=== PATIENT | female | born 1935 | race Caucasian/White ===

== ENCOUNTER 2017-07-24 13:04 | Outpatient (CLI) | payer MEDICARE ==
--- NOTE | 2017-07-24 16:11 | RAD ---
PA AND LATERAL VIEWS OF THE CHEST: HISTORY: COPD. FINDINGS: Comparison is made with the exam of 10/18/14. The heart size is normal. The lungs are well expanded without focal areas of consolidation, pneumoth orax, or pleural effusions. Mild chronic changes are stable. There are mild degenerative changes in the spine. IMPRESSION: No radiographic evidence of acute cardiopulmonary process. POS: OFF
== END 2017-07-24 13:05 | disposition home or self-care (01) ==
LOC: RAD-FRANK 13:04
PROVIDERS: ATTEND Nurse Practitioner Family
DX: J44.9 Chronic obstructive pulmonary disease, unspecified (principal)
CPT/HCPCS: 71020

== ENCOUNTER 2017-08-06 05:24 | Inpatient (IN) | payer MEDICARE ==
[2017-08-06 06:20] LABS: #Lymphocytes 1.7 thou/uL (1.20-3.40); #Monocytes 0.4 thou/uL (0.11-0.59); #Neutrophils 7.5 thou/uL (1.40-6.50); %Basophils 0.2 % (0.0-1.0); %Eosinophils 0.1 % (0.0-10.0); %Lymphocytes 17.6 % (21.0-51.0); %Monocytes 4.4 % (0.0-10.0); %Neutrophils 77.7 % (42.0-75.0); Hemoglobin 14.1 g/dL (12.0-16.0); Mean Corpuscular HGB CONC 32.3 g/dL (32.0-36.0); Mean Corpuscular Hemoglobin 28.2 pg (27.0-31.0); Mean Corpuscular Volume 87.1 fl (81.0-99.0); Mean Platelet Volume 9.1 fL (7.4-10.4); Platelet Count 208 thou/uL (130-400); RBC Distribution Width 12.9 % (11.5-14.5); Red Blood Cell (RBC) Count 5.02 mill/uL (4.20-5.40); White Blood Cell (WBC) Count 9.6 thou/uL (4.8-10.8)
[2017-08-06] MEDS ORDERED: Albuterol Sulfate 2.5 mg/0.5 ml Neb ONE ×4 (06:39→06:40)
[2017-08-06] MEDS ORDERED: Sodium Chloride For Inhalation 0.9% 3 ML NEB ONE (06:40)
[2017-08-06 06:43] LABS: ALT (SGPT) 15 U/L (8-55); AST (SGOT) 32 U/L (5-34); Albumin 4.1 g/dL (3.4-4.8); Alkaline Phosphatase 60 U/L (40-150); Anion Gap 15 mmol/L (10-20); BUN (Urea Nitrogen) 7 mg/dL (9.8-20.1); Bilirubin, Total 0.5 mg/dL (0.2-1.2); Calc. Creatinine Clearance 0 mL/min (70-130); Calcium 9.3 mg/dL (7.8-10.44); Carbon Dioxide 25 mmol/L (23-31); Chloride 96 mmol/L (98-107); Estimated GFR-MDRD 68; Glucose 199 mg/dL (83-110); Potassium 3.7 mmol/L (3.5-5.1); Protein, Total 7.1 g/dL (6.0-8.3); Sodium 132 mmol/L (136-145)
[2017-08-06 06:46] LABS: Troponin I 0.068 ng/mL (< 0.028)
[2017-08-06 06:52] LABS: CKMB 9.5 ng/mL (0-6.6)
--- NOTE | 2017-08-06 08:28 | RAD ---
SINGLE VIEW OF THE CHEST: Comparison: 06-15-13 History: Dyspnea, fever. FINDINGS: Single view of the chest shows a normal sized cardiomediastinal silhouette with atherosclerotic calci fications in the aorta. There is no evidence of consolidation, mass, or pleural effusion. IMPRESSION: No evidence of acute cardiopulmonary disease. POS: C
[2017-08-06 08:46] LABS: Actual Bicarbonate (HCO3a) 21.7 mEq/L (22-26); Base Excess (BEa) -4.6 mEq/L (0 (+/-) 2.5); CO2 Tension 44.4 mmHg (35.0-45.0); Calcium, Ionized 1.2 mmol/L (1.12-1.30); Hematocrit-ABG 48.3 % (36.0-47.0); Hemoglobin (Hb) 13.7 g/dL (12.0-16.0); O2 Tension (PaO2) 121.3 mmHg (80.0-100.0); pH, Arterial 7.31 (7.35-7.45)
[2017-08-06 08:47] LABS: Analyzer IN Cardio ER; Puncture Site RRA
--- NOTE | 2017-08-06 08:52 | HP ---
DATE OF ADMISSION: 08/06/2017 CHIEF COMPLAINT: Shortness of breath. HISTORY OF PRESENT ILLNESS: This is an 82-year-old elderly white female with a known history of COPD with multiple exacerbations. She usually goes to [facility] where she has most of her care. The patient was brought to this hospital today. She was started on BiPAP. She came to the E [facility] and saturations in the 70s. Patient was barely able to speak out of the BiPAP. She is saying that she has not been eating for the past 5 days and she has gotten very weak and lethargic and has worse frank cough for the past 1 week. The patient had to call EMS today because of the worsening cough and lethargy. She denies having any chest pain, no nausea, no vomiting, no diarrhea, and no constipatio n. 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 The patient has a known history of type 2 diabetes mellitus and according to her, it is well controll ed. PAST MEDICAL HISTORY: 1. Hypertension. 2. Type 2 diabetes mellitus. 3. Chronic obstructive pulmonary disease on home oxygen. 4. History of coronary artery disease status post stents, many years ago and she follows a cardiolog ist at [facility]. ALLERGIES: PENICILLIN allergy. HOME MEDICATIONS: 1. Omeprazole 40 mg p.o. daily. 2. Insulin, Levemir 10 units in the evening. 3. Lisinopril 10/12.5 mg p.o. daily. SOCIAL HISTORY: The patient is a nonsmoker, smoked for almost 60 years. No history of alcohol, no h istory of illicit drug use. She lives by herself and she is very independent. FAMILY HISTORY: Mother of heart disease at the age of 86. Otherwise, not relevant for the [facility]. REVIEW OF SYSTEMS: All 12 systems are reviewed with the patient thoroughly and found to be negative at this time. The following complete review of systems was negative, unless otherwise mentioned in t he HPI or below: Constitutional: Weight loss or gain, sense of well-being, ability to conduct usual activities, exerc ise tolerance. Skin/Breast: Rash, itching, changes in hair growth or loss, nail changes, breast lumps, tenderness, swelling, nipple discharge. Eyes: Vision, double vision, tearing, blind spots, pain. ENT/Mouth: Headaches (location, time of onset, duration, precipitating factors), vertigo, lightheade dness, injury. Vision, double vision, tearing, blind spots, pain, nose bleeding, colds, obstruction, discharge, dental difficulties, gingival bleeding, dentures, neck stiffness, pain, tenderness, masses in thyroid or other areas Cardiovascular: Precordial pain, substernal distress, palpitations, syncope, dyspnea on exertion, or thopnea, nocturnal paroxysmal dyspnea, edema, cyanosis, hypertension, heart murmurs, varicosities, ph lebitis, claudication. Respiratory: Pain, shortness of breath, wheezing, stridor, cough, hemoptysis, fever or night sweats Gastrointestinal: Poor appetite, dysphagia, indigestion, abdominal pain, heartburn, eructation, naus ea, vomiting, hematemesis, jaundice, constipation, or diarrhea, abnormal stools (walter-colored, tarry, bloody, greasy, foul smelling), flatulence, hemorrhoids, recent changes in bowel habits. Genitourinary: Urgency, frequency, dysuria, nocturia, hematuria, polyuria, oliguria, unusual (or fransisco nge in) color of urine, stones, hesitancy, change in size of stream, dribbling, acute retention or in continence, libido, potency. Musculoskeletal: Pain, swelling, redness or heat of muscles or joints, limitation, of motion, muscul ar weakness, atrophy, cramps. Neurologic/Psychiatric: Convulsions, paralyses, tremor, incoordination, paraesthesias, difficulties with memory of speech, sensory or motor disturbances, or muscular coordination (ataxia, tremor), emot ional problems, anxiety, depression, previous psychiatric care, unusual perceptions, hallucinations. Allergy/Immunologic: Skin rash, anemia, bleeding tendency, polydipsia, polyuria, intolerance to heat or cold. PHYSICAL EXAMINATION: VITAL SIGNS: Blood pressure is 130/88, respiratory rate is 18, saturation is 98% on 30% FiO2 on BiPA P 12/5. GENERAL: The patient is seen sitting on the bed, has severe distress as her BiPAP is being leaking a nd she is very uncomfortable at this time. HEENT: Atraumatic and normocephalic. PERRLA. Extraocular movements are intact. Oral mucosa is pin k and moist. CARDIOVASCULAR: S1 and S2 normal. No murmurs, rubs or gallops. LUNGS: Bilateral air entry was reduced with increased wheezing and crackles noted in the lower bases and with absolute severe bronchoconstriction were noted. ABDOMEN: Soft, nontender. No guarding or rebound tenderness. Bowel sounds normal. MUSCULOSKELETAL: No calf tenderness. No pedal edema. EXTREMITIES: No joint tenderness. No joint swelling. SKIN: No cyanosis, no erythema, no rash, no pallor. NEUROLOGIC: Cranial nerve examination II-XII intact. No focal deficits were identified at this time . MULTIPLE SLIDE OPERATOR: On examination, II-XII are intact. No focal deficits were noted. LYMPHATICS: No evidence of any lymph node enlargement was noted. PSYCHIATRIC: No signs of suicidal ideation. No signs of saad. No signs of agitation. NECK: No JVD was noted. No thyromegaly. LABORATORY DATA: WBC 9.6, hemoglobin 14.1, hematocrit 43.8, platelets is 208. Sodium 132, potassium 3.7, chloride is 96, BUN 7, creatinine 0.81, blood sugar 99, troponin 0.068, BNP 226. IMAGING DATA: Chest x-ray was done showing no evidence of any pneumonia at this time. ASSESSMENT: 1. Acute chronic obstructive pulmonary disease exacerbation. 2. Acute hypoxic respiratory failure. 3. Non-ST elevation myocardial infarction. 4. Hypertension. 5. History of hyperlipidemia. 6. History of gastroesophageal reflux disease. 7. History of coronary artery disease. PLAN: 1. Plan is to admit this patient for at least 2 midnights. Patient has severe respiratory compromis e at this time. She is on bilevel positive airway pressure currently and has severe bronchoconstrict ion. We will continue the patient on Solu-Medrol 40 mg q.6 hours and continue the bilevel positive a irway pressure as needed. Plan to keep the saturations more than 92% and we will titrate FiO2 to chan t. At this time, we will get an ABG to look for any evidence of CO2 retention and also consult Pulmo nary and Critical Care. 2. The patient has evidence of productive cough. We will start the patient on azithromycin 500 mg I V daily. 3. We will check for flu influenza. 4. Patient has elevated troponins and the patient expressed no interventions at this time, so we hay l closely follow and we will start the patient on Lovenox at 1 mg/kg and we will continue the patient on aspirin, beta ed, and statin. 5. We will order 2D echo and we will consult Cardiology if needed if any worsening troponins. 6. Patient has type 2 diabetes mellitus. We will continue the patient on home dose of Levemir 10 un its and will do a.c. and at bedtime sliding scale insulin. Closely monitor the blood sugars to keep them between 140-180. 7. Hypertension is well controlled. We will restart the patient's home medications. We will closel y monitor. 8. Deep venous thrombosis prophylaxis, on Lovenox. I spent 70 minutes on this patient. On this, one hour is a critical care time.
[2017-08-06 09:30] LABS: Troponin I 0.132 ng/mL (< 0.028)
[2017-08-06] MEDS ORDERED: Albuterol Sulfate 2.5 mg/3 ml Neb NEB PRN (10:34)
[2017-08-06] MEDS ORDERED: Dextrose 50% Abboject 50 ML SYRINGE SLOW IVP PRN (10:34)
[2017-08-06] MEDS ORDERED: Bisacodyl 5 MG TAB PO PRN (10:34)
[2017-08-06] MEDS ORDERED: Enoxaparin Sodium 40 MG/0.4 ML SYRINGE SC SCH ×3 (10:34→18:00)
[2017-08-06] MEDS ORDERED: Ondansetron ODT 4 MG TAB PO PRN (10:34)
[2017-08-06] MEDS ORDERED: HYDROcodone/Acetaminophen 5/325 mg Tablet PO PRN (10:34)
[2017-08-06] MEDS ORDERED: Guaifenesin DM 100-10/5 ML UDCUP PO PRN (10:34)
[2017-08-06] MEDS ORDERED: Famotidine/PF 20 mg/2ml Vial SLOW IVP SCH ×2 (10:34→12:00)
[2017-08-06] MEDS ORDERED: Insulin Regular 300 UNITS/3 ML VIAL SC PRN (10:34)
[2017-08-06] MEDS ORDERED: Dextrose 5% in Water 1,000 ML IV PRN (10:34)
[2017-08-06 11:53] LABS: pH, Arterial 7.32 (7.35-7.45)
[2017-08-06 11:54] LABS: Actual Bicarbonate (HCO3a) 21.3 mEq/L (22-26); Base Excess (BEa) -4.6 mEq/L (0 (+/-) 2.5); CO2 Tension 42.6 mmHg (35.0-45.0); O2 Tension (PaO2) 75.3 mmHg (80.0-100.0)
[2017-08-06 11:55] LABS: Analyzer IN Cardio ER; Calcium, Ionized 1.2 mmol/L (1.12-1.30); Puncture Site LRA
[2017-08-06 13:20] LABS: Troponin I 0.102 ng/mL (< 0.028)
[2017-08-06 17:27] VITALS: BMI 30.4
[2017-08-06] MEDS: Carvedilol 3.125 MG TAB PO SCH (18:13)
[2017-08-06] MEDS: Azithromycin 500 MG in Sodium Chloride 0.9% 250 ML 250 ML IVPB SCH (18:29)
[2017-08-06] MEDS: Insulin Detemir 100 UNITS/ML 10 UNITS in Pre-Filled Syringe 1 EACH SC SCH (18:30)
[2017-08-06] MEDS: Lisinopril/Hydrochlorothiazide 10 mg/12.5 mg Tablet PO SCH (18:35)
[2017-08-06] MEDS: Atorvastatin Calcium 40 MG TAB PO SCH (20:10)
[2017-08-06] MEDS: Famotidine/PF 20 mg/2ml Vial SLOW IVP SCH (20:10)
[2017-08-06] MEDS ORDERED: INSULIN DETEMIR 10 UNIT SQ SCH (21:00)
[2017-08-07 05:38] LABS: Anion Gap 13 mmol/L (10-20); BUN (Urea Nitrogen) 17 mg/dL (9.8-20.1); Calc. Creatinine Clearance 63 mL/min (70-130); Calcium 9.7 mg/dL (7.8-10.44); Carbon Dioxide 26 mmol/L (23-31); Chloride 98 mmol/L (98-107); Estimated GFR-MDRD 61; Glucose 181 mg/dL (83-110); Potassium 4.3 mmol/L (3.5-5.1); Sodium 133 mmol/L (136-145)
[2017-08-07 05:53] LABS: Band 10 % (5-11); Hemoglobin 13.4 g/dL (12.0-16.0); Lymphocytes 13 % (21-51); MDiff Complete? YES; Mean Corpuscular HGB CONC 32.7 g/dL (32.0-36.0); Mean Corpuscular Hemoglobin 28.3 pg (27.0-31.0); Mean Corpuscular Volume 86.4 fl (81.0-99.0); Monocytes 3 % (0-10); Neutrophil 69 % (42-75); PLT Morphology Comment Appears Decreased; Platelet Count 214 thou/uL (130-400); RBC Distribution Width 12.9 % (11.5-14.5); Reactive Lymphocytes 5 % (0-10); Red Blood Cell (RBC) Count 4.74 mill/uL (4.20-5.40); White Blood Cell (WBC) Count 22.8 thou/uL (4.8-10.8)
[2017-08-07] MEDS ORDERED: Prevnar 13-Val Conj/PF 0.5 ML SYRINGE IM ONE (09:00)
[2017-08-07] MEDS: Enoxaparin Sodium 40 MG/0.4 ML SYRINGE SC SCH (09:26)
[2017-08-07] MEDS: Famotidine/PF 20 mg/2ml Vial SLOW IVP SCH ×2 (09:26→20:33)
[2017-08-07] MEDS: Insulin Detemir 100 UNITS/ML 10 UNITS in Pre-Filled Syringe 1 EACH SC SCH (09:30)
[2017-08-07] MEDS: Carvedilol 3.125 MG TAB PO SCH ×3 (09:30→18:17)
[2017-08-07] MEDS: Azithromycin 500 MG in Sodium Chloride 0.9% 250 ML 250 ML IVPB SCH (12:22)
[2017-08-07] MEDS: Lisinopril/Hydrochlorothiazide 10 mg/12.5 mg Tablet PO SCH (12:28)
--- NOTE | 2017-08-07 14:58 | PDOC.PN ---
- Subjective Encounter Start Date: 08/07/17 Encounter Start Time: 08:00 Patient is sen today, alert an doriented. She is Sleeping in Bed comfortably, but was having severe wheezing. Denies any chest pain, has persistant SOB. - Objective Resuscitation Status: Resuscitation Status DNR:Do Not Resuscitate MAR Reviewed: Yes Vital Signs & Weight: Vital Signs (12 hours) Temp Pulse Pulse Pulse Resp BP Pulse Ox 08/07/17 12:28 81 08/07/17 11:28 98.4 F 81 22 H 98/62 99 08/07/17 09:07 85 84 08/07/17 08:06 92 22 H 92 L 08/07/17 08:00 98.0 F 92 22 H 118/59 L 92 L 08/07/17 05:16 97.9 F 93 24 H 93/53 L 95 Pulse Ox Pulse Ox Pulse Ox 08/07/17 12:28 08/07/17 11:28 08/07/17 09:07 96 84 L 98 08/07/17 08:06 08/07/17 08:00 08/07/17 05:16 Weight Weight 183 lb 3 oz I&O: 08/06/17 08/07/17 08/08/17 06:59 06:59 06:59 Intake Total 400 240 Balance 400 240 Result Diagrams: 08/07/17 04:54 08/07/17 04:54 Additional Labs: Accuchecks 08/07/17 08/07/17 08/06/17 10:47 05:13 20:10 POC Glucose 166 H 198 H 143 H 08/06/17 17:34 POC Glucose 206 H Radiology Reviewed by me: Yes Phys Exam - Physical Examination Constitutional: NAD HEENT: PERRLA, moist MMs Neck: no nodes, no JVD Respiratory: wheezing present (Reduced Air Entry) Cardiovascular: RRR, no significant murmur Gastrointestinal: soft, non-tender Musculoskeletal: no edema, pulses present Neurological: non-focal, normal sensation Lymphatic: no nodes Dx/Plan (1) Acute bronchitis with chronic obstructive pulmonary disease (COPD) Code(s): J44.0 - CHRONIC OBSTRUCTIVE PULMON DISEASE W ACUTE LOWER RESP INFCT; J20.9 - ACUTE BRONCHITIS, UNSPECIFIED Status: Acute (2) Acute and chronic respiratory failure with hypoxia Code(s): J96.21 - ACUTE AND CHRONIC RESPIRATORY FAILURE WITH HYPOXIA Status: Acute (3) Hypertension Code(s): I10 - ESSENTIAL (PRIMARY) HYPERTENSION Status: Acute (4) DM type 2 (diabetes mellitus, type 2) Status: Acute Qualifiers: Diabetes mellitus complication status: without complication (5) CAD (coronary artery disease) Code(s): I25.10 - ATHSCL HEART DISEASE OF [place] CORONARY ARTERY W/O ANG PCTRS Status: Chronic - Plan cont current plan of care, continue antibiotics, PT/OT, respiratory therapy, incentive spirometry, DVT proph w/lovenox * . Plan: Will continue with Solumedrol 40mg q hrs, Will use BIPAP if worsening oxygen requirements, continue with Duo nebs and Albyuteral and IV azithromycin. Consulted Pulmonary waiting for recommedations. Will add Acapella for increased mucosal clearance and better breathing. Patient has h/o CAD, continue patient on Asprin/ BB/ Statin, Deneis any chest pain. Patient has h/o DM type 2 will continue with SSI, keep BG 140-180. DVT prophylaxis: Lovenox. Code status DNR - Discharge Day Encounter end time: 08:30 Review of Systems - Review of Systems Constitutional: weakness Eyes: negative: Vision Change, Conjunctivae Inflammation, Eyelid Inflammation, Redness, Other ENT: negative: Ear Pain, Ear Discharge, Nose Pain, Nose Discharge, Nose Congestion, Mouth Pain, Mouth Swelling, Throat Pain, Throat Swelling, Other Respiratory: Cough, Shortness of Breath, SOB with Excertion, Wheezing Cardiovascular: orthopnea. negative: chest pain, palpitations, paroxysmal nocturnal dyspnea, edema, light headedness, other Genitourinary: negative: Dysuria, Frequency, Incontinence, Hematuria, Retention , Other Musculoskeletal: negative: Neck Pain, Shoulder Pain, Arm Pain, Back Pain, Hand Pain, Leg Pain, Foot Pain, Other Skin: negative: Rash, Lesions, Magno, Bruising, Other Neurological: negative: Weakness, Numbness, Incoordination, Change in Speech, Confusion, Seizures, Other - Medications/Allergies Allergies/Adverse Reactions: Allergies Allergy/AdvReac Type Severity Reaction Status Date / Time Penicillins Allergy Severe Rash Verified 06/16/13 00:55 Medications: Current Medications Hydrocodone Bitart/Acetaminophen ([place] 5/325) 1 tab PO Q4H PRN PRN Reason: Moderate Pain (4-6) Albuterol Sulfate (Ventolin) 2.5 mg NEB Q2H PRN PRN Reason: SOB &/or Wheezing Albuterol/Ipratropium (Duoneb) 3 ml NEB [id number] [facility] Last Admin: 08/07/17 11:33 Dose: 3 ml Aspirin (Aspirin Chewable) 81 mg PO DAILY [facility] Last Admin: 08/07/17 09:27 Dose: 81 mg Atorvastatin Calcium (Lipitor) 40 mg PO HS [facility] Last Admin: 08/06/17 20:10 Dose: 40 mg Bisacodyl (Dulcolax) 10 mg PO DAILYPRN PRN PRN Reason: Constipation Carvedilol (Coreg) 3.125 mg PO BID-WM [facility] Last Admin: 08/07/17 09:30 Dose: 3.125 mg Dextrose/Water (Dextrose 50%) 25 gm SLOW IVP PRN PRN PRN Reason: Hypoglycemia Enoxaparin Sodium (Lovenox) 40 mg SC 0900 [facility] Last Admin: 08/07/17 09:26 Dose: 40 mg Famotidine (Pepcid) 20 mg SLOW IVP Q12HR [facility] Last Admin: 08/07/17 09:26 Dose: 20 mg Glucagon (Glucagon) 1 mg IM PRN PRN PRN Reason: Hypoglycemia Guaifenesin/Dextromethorphan (Robitussin Dm) 15 ml PO Q4H PRN PRN Reason: Cough Lisinopril/HCTZ (Prinizide 10-12.5) 1 tab PO DAILY [facility] Last Admin: 08/07/17 12:28 Dose: Not Given Insulin Detemir 10 units/ (Miscellaneous Medication) 0.1 mls @ 0 mls/hr SC QAM [facility] Last Admin: 08/07/17 09:30 Dose: 0.1 mls Azithromycin 500 mg/ Sodium (Chloride) 250 mls @ 250 mls/hr IVPB 1200 [facility] Last Admin: 08/07/17 12:22 Dose: 250 mls Dextrose/Water (D5w) 1,000 mls @ 0 mls/hr IV .Q0M PRN; As Directed PRN Reason: Hypoglycemia Insulin Human Regular (Humulin R) 0 units SC .MODERATE SLIDING SC PRN PRN Reason: Moderate Correctional Scale Methylprednisolone Sodium Succinate (Solu-Medrol) 40 mg IVP Q6HR [facility] Last Admin: 08/07/17 12:22 Dose: 40 mg Ondansetron HCl (Zofran Odt) 4 mg PO Q6H PRN PRN Reason: Nausea/Vomiting Pantoprazole Sodium (Protonix) 40 mg PO DAILY [facility] Last Admin: 08/07/17 09:31 Dose: 40 mg
--- NOTE | 2017-08-07 15:57 | RAD ---
CHEST ONE VIEW: History: Shortness of breath. Comparison: 08-06-17 FINDINGS: Exam is limited due to patient rotation. Increased mediastinal fat. No focal airspace consolidation or pneumothorax. There is scarring in the lung apices. IMPRESSION: No acute intrathoracic abnormality. POS: [facility]
[2017-08-07] MEDS: Atorvastatin Calcium 40 MG TAB PO SCH ×2 (20:33→20:43)
[2017-08-08 06:22] LABS: Band 10 % (5-11); Hemoglobin 13.1 g/dL (12.0-16.0); Lymphocytes 5 % (21-51); MDiff Complete? YES; Mean Corpuscular HGB CONC 31.9 g/dL (32.0-36.0); Mean Corpuscular Volume 87.9 fl (81.0-99.0); Mean Platelet Volume 8.6 fL (7.4-10.4); Monocytes 4 % (0-10); Neutrophil 81 % (42-75); Platelet Count 234 thou/uL (130-400); RBC Distribution Width 12.9 % (11.5-14.5); Red Blood Cell (RBC) Count 4.69 mill/uL (4.20-5.40); White Blood Cell (WBC) Count 22.3 thou/uL (4.8-10.8)
[2017-08-08 06:38] LABS: Anion Gap 11 mmol/L (10-20); BUN (Urea Nitrogen) 24 mg/dL (9.8-20.1); Calc. Creatinine Clearance 62 mL/min (70-130); Calcium 9.6 mg/dL (7.8-10.44); Carbon Dioxide 33 mmol/L (23-31); Chloride 97 mmol/L (98-107); Estimated GFR-MDRD 60; Glucose 128 mg/dL (83-110); Potassium 4.8 mmol/L (3.5-5.1); Sodium 136 mmol/L (136-145)
[2017-08-08] MEDS: Carvedilol 3.125 MG TAB PO SCH ×2 (09:28→17:31)
[2017-08-08] MEDS: Enoxaparin Sodium 40 MG/0.4 ML SYRINGE SC SCH (09:28)
[2017-08-08] MEDS: Lisinopril/Hydrochlorothiazide 10 mg/12.5 mg Tablet PO SCH (09:28)
[2017-08-08] MEDS: Famotidine/PF 20 mg/2ml Vial SLOW IVP SCH (09:34)
[2017-08-08] MEDS: Azithromycin 500 MG in Sodium Chloride 0.9% 250 ML 250 ML IVPB SCH (14:39)
[2017-08-08] MEDS: Insulin Detemir 100 UNITS/ML 10 UNITS in Pre-Filled Syringe 1 EACH SC SCH (14:54)
--- NOTE | 2017-08-08 15:49 | PDOC.PN ---
- Subjective Encounter Start Date: 08/08/17 Encounter Start Time: 11:00 Leonie is seen today, alert and oriented. No other Concenr snoted. She remain very wheezy but able to talk in sentences. - Objective Resuscitation Status: Resuscitation Status DNR:Do Not Resuscitate MAR Reviewed: Yes Vital Signs & Weight: Vital Signs (12 hours) Temp Pulse Resp BP BP Pulse Ox 08/08/17 09:28 76 132/78 08/08/17 08:00 98.5 F 75 20 132/78 98 08/08/17 04:00 98.3 F 76 20 127/73 93 L Weight Weight 183 lb 3 oz I&O: 08/07/17 08/08/17 08/09/17 06:59 06:59 06:59 Intake Total 400 340 Balance 400 340 Result Diagrams: 08/08/17 05:54 08/08/17 05:54 Additional Labs: Accuchecks 08/08/17 08/08/17 08/07/17 11:18 04:59 19:19 POC Glucose 112 H 116 H 141 H 08/07/17 16:00 POC Glucose 121 H Radiology Reviewed by me: Yes Phys Exam - Physical Examination HEENT: PERRLA, moist MMs Neck: no nodes, no JVD Respiratory: wheezing present Cardiovascular: RRR, no significant murmur Gastrointestinal: soft, non-tender Musculoskeletal: no edema, pulses present Neurological: normal sensation Lymphatic: no nodes Psychiatric: normal affect, A&O x 3 Dx/Plan (1) Acute bronchitis with chronic obstructive pulmonary disease (COPD) Code(s): J44.0 - CHRONIC OBSTRUCTIVE PULMON DISEASE W ACUTE LOWER RESP INFCT; J20.9 - ACUTE BRONCHITIS, UNSPECIFIED Status: Acute (2) Acute and chronic respiratory failure with hypoxia Code(s): J96.21 - ACUTE AND CHRONIC RESPIRATORY FAILURE WITH HYPOXIA Status: Acute (3) Hypertension Code(s): I10 - ESSENTIAL (PRIMARY) HYPERTENSION Status: Acute Qualifiers: Hypertension type: essential hypertension Qualified Code(s): I10 - Essential (primary) hypertension (4) DM type 2 (diabetes mellitus, type 2) Status: Acute Qualifiers: Diabetes mellitus complication status: without complication (5) CAD (coronary artery disease) Code(s): I25.10 - ATHSCL HEART DISEASE OF [place] CORONARY ARTERY W/O ANG PCTRS Status: Chronic - Plan cont current plan of care, plan discussed w/ family, continue antibiotics, social media marketing manager, incentive spirometry, out of bed/ambulate, DVT proph w/lovenox * . Plan: Will continue with Solumedrol 40mg q hrs, , continue with Duo nebs and Albyuteral and IV azithromycin. Will do Acapella q4hrs. Consulted Pulmonary follow recommedations. will repeat chest xray in Am. Patient has h/o CAD, continue patient on Asprin/ BB/ Statin, Deneis any chest pain. Patient has h/o DM type 2 will continue with SSI, keep BG 140-180. DVT prophylaxis: Lovenox. Code status DNR - Discharge Day Encounter end time: 11:30 Review of Systems - Review of Systems Constitutional: weakness, malaise Eyes: negative: Pain, Vision Change, Conjunctivae Inflammation, Eyelid Inflammation, Redness, Other ENT: negative: Ear Pain, Ear Discharge, Nose Pain, Nose Discharge, Nose Congestion, Mouth Pain, Mouth Swelling, Throat Pain, Throat Swelling, Other Respiratory: Cough, Shortness of Breath, SOB with Excertion, Wheezing Gastrointestinal: negative: Nausea, Vomiting, Abdominal Pain, Diarrhea, Constipation, Melena, Hematochezia, Other Genitourinary: negative: Dysuria, Frequency, Incontinence, Hematuria, Retention , Other Musculoskeletal: negative: Neck Pain, Shoulder Pain, Arm Pain, Back Pain, Hand Pain, Leg Pain, Foot Pain, Other Skin: negative: Rash, Lesions, Magno, Bruising, Other - Medications/Allergies Allergies/Adverse Reactions: Allergies Allergy/AdvReac Type Severity Reaction Status Date / Time Penicillins Allergy Severe Rash Verified 06/16/13 00:55 Medications: Current Medications Hydrocodone Bitart/Acetaminophen ([place] 5/325) 1 tab PO Q4H PRN PRN Reason: Moderate Pain (4-6) Albuterol Sulfate (Ventolin) 2.5 mg NEB Q2H PRN PRN Reason: SOB &/or Wheezing Albuterol/Ipratropium (Duoneb) 3 ml NEB [id number] [facility] Last Admin: 08/08/17 10:37 Dose: Not Given Aspirin (Aspirin Chewable) 81 mg PO DAILY [facility] Last Admin: 08/08/17 09:28 Dose: 81 mg Atorvastatin Calcium (Lipitor) 40 mg PO HS [facility] Last Admin: 08/07/17 20:43 Dose: Not Given Bisacodyl (Dulcolax) 10 mg PO DAILYPRN PRN PRN Reason: Constipation Carvedilol (Coreg) 3.125 mg PO BID-[facility] Last Admin: 08/08/17 09:28 Dose: 3.125 mg Dextrose/Water (Dextrose 50%) 25 gm SLOW IVP PRN PRN PRN Reason: Hypoglycemia Enoxaparin Sodium (Lovenox) 40 mg SC 0900 [facility] Last Admin: 08/08/17 09:28 Dose: 40 mg Famotidine (Pepcid) 20 mg SLOW IVP Q12HR [facility] Last Admin: 08/08/17 09:34 Dose: 20 mg Glucagon (Glucagon) 1 mg IM PRN PRN PRN Reason: Hypoglycemia Guaifenesin/Dextromethorphan (Robitussin Dm) 15 ml PO Q4H PRN PRN Reason: Cough Lisinopril/HCTZ (Prinizide 10-12.5) 1 tab PO DAILY [facility] Last Admin: 08/08/17 09:28 Dose: 1 tab Insulin Detemir 10 units/ (Miscellaneous Medication) 0.1 mls @ 0 mls/hr SC QAM [facility] Last Admin: 08/08/17 14:54 Dose: Not Given Azithromycin 500 mg/ Sodium (Chloride) 250 mls @ 250 mls/hr IVPB 1200 [facility] Last Admin: 08/08/17 14:39 Dose: 250 mls Dextrose/Water (D5w) 1,000 mls @ 0 mls/hr IV .Q0M PRN; As Directed PRN Reason: Hypoglycemia Insulin Human Regular (Humulin R) 0 units SC .MODERATE SLIDING SC PRN PRN Reason: Moderate Correctional Scale Methylprednisolone Sodium Succinate (Solu-Medrol) 40 mg IVP Q6HR [facility] Last Admin: 08/08/17 14:54 Dose: Not Given Ondansetron HCl (Zofran Odt) 4 mg PO Q6H PRN PRN Reason: Nausea/Vomiting Pantoprazole Sodium (Protonix) 40 mg PO DAILY [facility] Last Admin: 08/08/17 09:28 Dose: 40 mg
[2017-08-08] MEDS: guaiFENesin ER 600 MG TAB PO SCH (20:44)
[2017-08-08] MEDS: Atorvastatin Calcium 40 MG TAB PO SCH (20:44)
[2017-08-08] MEDS: Famotidine 40 MG/4 ML VIAL SLOW IVP SCH (20:45)
--- NOTE | 2017-08-08 21:24 | CON ---
DATE OF SERVICE: 08/08/2017 SERVICE: Pulmonary Medicine. REASON FOR CONSULTATION: Respiratory failure. HISTORY OF PRESENT ILLNESS: Patient is an 82-year-old white female. She is awake and alert. She is oriented x4 and understands the situation. She notes that she came into the emergency department be cause of shortness of breath. She was struggling to breathe and so she presented here. Otherwise, s he was in her usual state of health. She had some cough and congestion. She is bringing up a little bit of yellow sputum. She tells me that she has horrendous lung disease as well as horrendous heart disease. As such, she would like to go home and ".". She notes having a primary supply chain associate, but cannot actually tell me what her name is. The echocardiogram is not consistent with her statemen t that she had a very sick heart. We had a CT scan of the chest in 2012. At that time, there was de monstration of minimal emphysematous changes. No pulmonary function studies are in our record. Sinc e being here, she had been fairly cantankerous. 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 She is cursing and is not interested in engaging in any conversation or an swering many questions. Most of this comes from chart review. PAST MEDICAL HISTORY: 1. Type 2 diabetes mellitus. 2. Hypertension. 3. Coronary artery disease, status post PCI. 4. COPD. 5. Chronic hypoxic respiratory failure, on home oxygen. PAST SURGICAL HISTORY: Unknown. ALLERGIES: PENICILLIN. MEDICATIONS: List of her inpatient medications was reviewed. No updates were made at this time. SOCIAL HISTORY: She has a [id number] history of smoking, but is currently not using anything. She denies any alcohol or illicit drug use. She currently lives by herself in previously [facility]. FAMILY HISTORY: Noncontributory. REVIEW OF SYSTEMS: Patient is refusing to participate in review of systems. PHYSICAL EXAMINATION: VITAL SIGNS: Afebrile, pulse 75, blood pressure 132/78, respirations 20, saturation 98% on 4 liters nasal cannula. GENERAL: The patient is awake and alert, in no apparent distress. HEENT: Normocephalic, atraumatic. Sclerae are white, conjunctivae pink. Oral mucosa is moist witho ut lesions. LUNGS: Decreased air entry. There is a prolonged expiratory phase, but I do not appreciating any wh eezing. Crackles are present. No rhonchi. HEART: Normal rate, regular. ABDOMEN: Soft, nontender, nondistended. Bowel sounds are positive. MUSCULOSKELETAL: No cyanosis or clubbing. There is no pitting in the bilateral lower extremities. NEUROLOGIC: Grossly nonfocal. LABORATORY DATA: WBC 22.3 and stable. Hemoglobin 13.1, platelets 234,000. Band count is 10% and ne utrophil count is up trending. A pH 7.32, pCO2 42, and pO2 75. She was on 3 liters nasal cannula at this time. Basic metabolic profile is essentially unremarkable. Creatinine 0.90, bicarbonate 33. Blood cultures x2 were unremarkable. IMAGIN. Chest x-ray demonstrates no acute intrathoracic process. Lung fortune are clear bilaterally witho ut focal consolidation. There is little prominence of pulmonary vasculature. Soft tissue attenuatio n is evident. Lung volumes are not hyperinflated. 2. Echocardiogram demonstrates normal ejection fraction with 1-3 diastolic dysfunction. No regional wall motion abnormalities. Normal left ventricular wall thickness is present. ASSESSMENT: 1. Chronic hypoxic respiratory failure. 2. Acute on chronic diastolic heart failure. 3. Chronic obstructive pulmonary disease with acute exacerbation, possible. 4. Morbid obesity. DISCUSSION AND PLAN: The patient is suggesting to me that she has end-stage lung disease and heart d isease and wants to go home and pass away. This is not congruent with what we were finding on physic al exam and imaging studies. I am going to have palliative care come by and discuss goals of care mo ving forward. At this point, I certainly do not see a qualifying diagnosis. Perhaps her primary car e physician with have her for hospice. Previous CT scan really did not demonstrate any significant e nd-stage emphysematous changes. The lungs were overtly hyperinflated. We will continue current supp ortive care. I would like to send respiratory virus profile off to see whether or not she has any in fectious process that precipitated her presentation. Pulmonary or Critical Care will continue to fol low while she remains in the hospital for the time being.
[2017-08-09] MEDS: guaiFENesin ER 600 MG TAB PO SCH ×2 (08:37→20:49)
[2017-08-09] MEDS: Insulin Detemir 100 UNITS/ML 10 UNITS in Pre-Filled Syringe 1 EACH SC SCH (08:38)
[2017-08-09] MEDS: Lisinopril/Hydrochlorothiazide 10 mg/12.5 mg Tablet PO SCH (08:38)
[2017-08-09] MEDS: Enoxaparin Sodium 40 MG/0.4 ML SYRINGE SC SCH (08:38)
[2017-08-09] MEDS: predniSONE 20 MG TAB PO SCH (08:38)
[2017-08-09] MEDS: Famotidine 40 MG/4 ML VIAL SLOW IVP SCH (08:39)
[2017-08-09] MEDS: Carvedilol 3.125 MG TAB PO SCH ×2 (08:39→17:17)
[2017-08-09] MEDS: Azithromycin 500 MG in Sodium Chloride 0.9% 250 ML 250 ML IVPB SCH (12:31)
--- NOTE | 2017-08-09 13:25 | PDOC.PN ---
- Subjective Encounter Start Date: 08/09/17 Encounter Start Time: 13:23 Subjective: Seen and examined with no new complaint - Objective Resuscitation Status: Resuscitation Status DNR:Do Not Resuscitate Vital Signs & Weight: Vital Signs (12 hours) Temp Pulse Pulse Resp BP BP Pulse Ox 08/09/17 08:38 73 08/09/17 08:00 97.5 F L 73 18 110/69 98 08/09/17 07:49 70 110/69 Pulse Ox 08/09/17 08:38 08/09/17 08:00 08/09/17 07:49 98 Weight Weight 183 lb 3 oz I&O: 08/08/17 08/09/17 08/10/17 06:59 06:59 06:59 Intake Total 340 370 240 Balance 340 370 240 Result Diagrams: 08/08/17 05:54 08/08/17 05:54 Additional Labs: Accuchecks 08/09/17 08/09/17 08/08/17 11:31 05:59 20:37 POC Glucose 188 H 145 H 114 H 08/08/17 16:31 POC Glucose 97 Phys Exam - Physical Examination Constitutional: NAD HEENT: PERRLA, moist MMs, sclera anicteric, TM's clear, oral pharynx no lesions Neck: no nodes, no JVD, supple, full ROM Respiratory: no rales, no rhonchi, clear to auscultation bilateral dimished breat sounds Cardiovascular: RRR, no significant murmur, no rub Gastrointestinal: soft, non-tender, no distention, positive bowel sounds Musculoskeletal: no edema, pulses present Dx/Plan (1) Acute and chronic respiratory failure with hypoxia Code(s): J96.21 - ACUTE AND CHRONIC RESPIRATORY FAILURE WITH HYPOXIA Status: Acute (2) Acute bronchitis with chronic obstructive pulmonary disease (COPD) Code(s): J44.0 - CHRONIC OBSTRUCTIVE PULMON DISEASE W ACUTE LOWER RESP INFCT; J20.9 - ACUTE BRONCHITIS, UNSPECIFIED Status: Acute (3) DM type 2 (diabetes mellitus, type 2) Status: Acute Qualifiers: Diabetes mellitus complication status: without complication (4) Hypertension Code(s): I10 - ESSENTIAL (PRIMARY) HYPERTENSION Status: Acute Qualifiers: Hypertension type: essential hypertension Qualified Code(s): I10 - Essential (primary) hypertension (5) CAD (coronary artery disease) Code(s): I25.10 - ATHSCL HEART DISEASE OF [place] CORONARY ARTERY W/O ANG PCTRS Status: Chronic - Plan plan discussed w/ family, continue antibiotics, PT/OT, group social worker, respiratory therapy will switch over antibiotics to oral -: Appreciate pulmonary input-working up a pulmonary infectious process -: Dispo planning * .
--- NOTE | 2017-08-09 19:05 | PRG ---
DATE OF SERVICE: 08/09/2017 SERVICE: Pulmonary Medicine. INTERVAL HISTORY: The patient is doing fine from a respiratory standpoint. She actually has no resp iratory related complaints. She is very very upset that she has been in lying in a bowel movement al l day long. I apologized that this occurred to her. Then, I offered to go get nursing to help out. Then, she told me that she did not want anybody to help her change her bowel movement. She just pre ferred to lay all day long because she is being treated so poorly. I went out and talked to nursing. They had suggested that the patient was identified having a bowel movement early this morning. The y went to clean her up and everytime they do, she sends them out of the room and does not allow them to help to clean her. She also suggested that she no longer wanted me to see her. As such, I am goi ng to sign off. I am not quite certain why the patient is so angry and frustrated. That being said, she may benefit from psychology to help us understand her current ply. PHYSICAL EXAMINATION: VITAL SIGNS: Afebrile, pulse 73, blood pressure 110/69, respirations 18 and saturation 98% on 4 lite rs nasal cannula. GENERAL: The patient is awake and alert in no apparent distress. LUNGS: Decent air entry. There is not really much in the way of a prolonged expiratory phase. No w heezing is appreciated. HEART: Normal rate and regular. ABDOMEN: Soft, nontender and nondistended. Bowel sounds are positive. MUSCULOSKELETAL: No cyanosis or clubbing. There is no pitting in the bilateral lower extremities. NEUROLOGIC: Grossly nonfocal. LABORATORY DATA: Influenza AH3 was detected. Blood cultures x2 were negative to date. ASSESSMENT: 1. Acute hypoxic respiratory failure. 2. Acute on chronic diastolic heart failure. 3. Chronic obstructive pulmonary disease with acute exacerbation, possible. 4. Influenza A. 5. Morbid obesity. PLAN: The patient will need to complete a 5-day course of Tamiflu. At this point, she has no furthe r requirements for pulmonary or critical care opinion. As such, I will sign off. In the outpatient setting, we will need to really fully clarify whether or not the patient has any lung related disease . We certainly know that her heart is functioning fairly well. I do not see anything that would pre vent her from being dismissed from the hospital at this time. Please call with additional questions or concerns moving forward.
[2017-08-09] MEDS: Famotidine/PF 20 mg/2ml Vial SLOW IVP SCH (20:48)
[2017-08-09] MEDS: Oseltamivir 75 MG CAP PO SCH (20:48)
[2017-08-09] MEDS: Atorvastatin Calcium 40 MG TAB PO SCH (20:48)
[2017-08-10] MEDS: Enoxaparin Sodium 40 MG/0.4 ML SYRINGE SC SCH (07:52)
[2017-08-10] MEDS: Famotidine/PF 20 mg/2ml Vial SLOW IVP SCH ×2 (07:53→20:55)
[2017-08-10] MEDS: Oseltamivir 75 MG CAP PO SCH ×2 (07:53→20:56)
[2017-08-10] MEDS: predniSONE 20 MG TAB PO SCH (07:53)
[2017-08-10] MEDS: Carvedilol 3.125 MG TAB PO SCH ×2 (07:53→07:54)
[2017-08-10] MEDS: guaiFENesin ER 600 MG TAB PO SCH ×2 (07:53→20:55)
[2017-08-10] MEDS: Lisinopril/Hydrochlorothiazide 10 mg/12.5 mg Tablet PO SCH (07:53)
[2017-08-10] MEDS: Azithromycin 250 MG TAB PO SCH (07:54)
[2017-08-10] MEDS: Insulin Detemir 100 UNITS/ML 10 UNITS in Pre-Filled Syringe 1 EACH SC SCH (07:54)
--- NOTE | 2017-08-10 19:24 | PDOC.PN ---
- Subjective Encounter Start Date: 08/10/17 Encounter Start Time: 19:23 Subjective: seen and examined doing well - Objective Resuscitation Status: Resuscitation Status DNR:Do Not Resuscitate Vital Signs & Weight: Vital Signs (12 hours) Temp Pulse Resp BP Pulse Ox 08/10/17 08:28 98.5 F 93 20 159/74 H 93 L 08/10/17 08:00 98.5 F 93 20 92 L 08/10/17 07:53 70 Weight Weight 183 lb 3 oz I&O: 08/09/17 08/10/17 08/11/17 06:59 06:59 06:59 Intake Total 370 240 360 Balance 370 240 360 Result Diagrams: 08/08/17 05:54 08/08/17 05:54 Additional Labs: Accuchecks 08/10/17 08/10/17 08/10/17 16:31 11:36 03:54 POC Glucose 174 H 142 H 93 08/09/17 20:16 POC Glucose 128 H Phys Exam - Physical Examination Constitutional: NAD HEENT: PERRLA, moist MMs, sclera anicteric, TM's clear, oral pharynx no lesions Neck: no nodes, no JVD, supple, full ROM Respiratory: no wheezing, no rales, no rhonchi Cardiovascular: RRR, no significant murmur, no rub Gastrointestinal: soft, non-tender, no distention, positive bowel sounds Musculoskeletal: no edema, pulses present Neurological: non-focal, normal sensation Dx/Plan (1) Acute and chronic respiratory failure with hypoxia Code(s): J96.21 - ACUTE AND CHRONIC RESPIRATORY FAILURE WITH HYPOXIA Status: Acute (2) Acute bronchitis with chronic obstructive pulmonary disease (COPD) Code(s): J44.0 - CHRONIC OBSTRUCTIVE PULMON DISEASE W ACUTE LOWER RESP INFCT; J20.9 - ACUTE BRONCHITIS, UNSPECIFIED Status: Acute (3) DM type 2 (diabetes mellitus, type 2) Status: Acute Qualifiers: Diabetes mellitus complication status: without complication (4) Hypertension Code(s): I10 - ESSENTIAL (PRIMARY) HYPERTENSION Status: Acute Qualifiers: Hypertension type: essential hypertension Qualified Code(s): I10 - Essential (primary) hypertension (5) CAD (coronary artery disease) Code(s): I25.10 - ATHSCL HEART DISEASE OF [place] CORONARY ARTERY W/O ANG PCTRS Status: Chronic - Plan respiratory therapy d/c possibly next 24hrs * .
[2017-08-10] MEDS: Atorvastatin Calcium 40 MG TAB PO SCH (20:55)
[2017-08-11] MEDS: Famotidine/PF 20 mg/2ml Vial SLOW IVP SCH ×2 (08:06→21:00)
[2017-08-11] MEDS: Lisinopril/Hydrochlorothiazide 10 mg/12.5 mg Tablet PO SCH (08:07)
[2017-08-11] MEDS: guaiFENesin ER 600 MG TAB PO SCH ×2 (08:07→21:00)
[2017-08-11] MEDS: predniSONE 20 MG TAB PO SCH (08:07)
[2017-08-11] MEDS: Insulin Detemir 100 UNITS/ML 10 UNITS in Pre-Filled Syringe 1 EACH SC SCH (08:08)
[2017-08-11] MEDS: Oseltamivir 75 MG CAP PO SCH ×2 (08:08→21:00)
[2017-08-11] MEDS: Azithromycin 250 MG TAB PO SCH (08:08)
[2017-08-11] MEDS: Enoxaparin Sodium 40 MG/0.4 ML SYRINGE SC SCH (08:08)
[2017-08-11] MEDS: Carvedilol 3.125 MG TAB PO SCH ×2 (08:13→16:55)
--- NOTE | 2017-08-11 09:43 | PDOC.PN ---
- Subjective Encounter Start Date: 08/11/17 Encounter Start Time: 09:41 Subjective: Seen and examined - Objective Resuscitation Status: Resuscitation Status DNR:Do Not Resuscitate Vital Signs & Weight: Vital Signs (12 hours) Temp Pulse Resp Pulse Ox 08/11/17 08:07 76 08/11/17 08:00 98.1 F 76 18 95 Weight Weight 183 lb 3 oz I&O: 08/10/17 08/11/17 08/12/17 06:59 06:59 06:59 Intake Total 240 710 Balance 240 710 Result Diagrams: 08/08/17 05:54 08/08/17 05:54 Additional Labs: Accuchecks 08/11/17 08/10/17 08/10/17 05:43 20:52 16:31 POC Glucose 87 98 174 H 08/10/17 11:36 POC Glucose 142 H Phys Exam - Physical Examination Constitutional: NAD HEENT: PERRLA, moist MMs, sclera anicteric, TM's clear Neck: no nodes, no JVD, supple, full ROM Respiratory: no wheezing, no rales, no rhonchi, clear to auscultation bilateral Cardiovascular: RRR, no significant murmur, no rub Gastrointestinal: soft, non-tender, no distention, positive bowel sounds Musculoskeletal: no edema, pulses present Neurological: non-focal Dx/Plan (1) Acute and chronic respiratory failure with hypoxia Code(s): J96.21 - ACUTE AND CHRONIC RESPIRATORY FAILURE WITH HYPOXIA Status: Acute (2) Acute bronchitis with chronic obstructive pulmonary disease (COPD) Code(s): J44.0 - CHRONIC OBSTRUCTIVE PULMON DISEASE W ACUTE LOWER RESP INFCT; J20.9 - ACUTE BRONCHITIS, UNSPECIFIED Status: Acute (3) DM type 2 (diabetes mellitus, type 2) Status: Acute Qualifiers: Diabetes mellitus complication status: without complication (4) Hypertension Code(s): I10 - ESSENTIAL (PRIMARY) HYPERTENSION Status: Acute Qualifiers: Hypertension type: essential hypertension Qualified Code(s): I10 - Essential (primary) hypertension (5) CAD (coronary artery disease) Code(s): I25.10 - ATHSCL HEART DISEASE OF [place] CORONARY ARTERY W/O ANG PCTRS Status: Chronic - Plan PT/OT * .
[2017-08-11] MEDS: Atorvastatin Calcium 40 MG TAB PO SCH (21:00)
[2017-08-12] MEDS: Oseltamivir 75 MG CAP PO SCH ×2 (09:03→20:59)
[2017-08-12] MEDS: Lisinopril/Hydrochlorothiazide 10 mg/12.5 mg Tablet PO SCH (09:03)
[2017-08-12] MEDS: Azithromycin 250 MG TAB PO SCH (09:04)
[2017-08-12] MEDS: guaiFENesin ER 600 MG TAB PO SCH ×2 (09:04→20:59)
[2017-08-12] MEDS: Carvedilol 3.125 MG TAB PO SCH ×2 (09:04→17:14)
[2017-08-12] MEDS: Insulin Detemir 100 UNITS/ML 10 UNITS in Pre-Filled Syringe 1 EACH SC SCH (09:05)
[2017-08-12] MEDS: Famotidine/PF 20 mg/2ml Vial SLOW IVP SCH ×2 (09:05→20:59)
[2017-08-12] MEDS: Enoxaparin Sodium 40 MG/0.4 ML SYRINGE SC SCH (09:06)
--- NOTE | 2017-08-12 19:20 | PDOC.PN ---
- Subjective Encounter Start Date: 08/12/17 Encounter Start Time: 19:19 Subjective: seen and examined c/o sever weakness - Objective Resuscitation Status: Resuscitation Status DNR:Do Not Resuscitate Vital Signs & Weight: Vital Signs (12 hours) Temp Pulse Resp BP BP BP Pulse Ox 08/12/17 17:10 97.8 F 81 16 119/82 08/12/17 11:18 80 153/80 H 08/12/17 09:03 70 154/74 H 08/12/17 08:00 97.6 F 70 16 92 L 08/12/17 07:20 97.6 F 70 16 154/74 H 92 L Weight Weight 183 lb 3 oz I&O: 08/11/17 08/12/17 08/13/17 06:59 06:59 06:59 Intake Total 710 510 Balance 710 510 Result Diagrams: 08/08/17 05:54 08/08/17 05:54 Additional Labs: Accuchecks 08/12/17 08/12/17 08/12/17 16:31 11:18 05:18 POC Glucose 119 H 119 H 101 08/11/17 20:45 POC Glucose 253 H Phys Exam - Physical Examination Constitutional: NAD HEENT: PERRLA, moist MMs, sclera anicteric, TM's clear Neck: no nodes, no JVD, supple, full ROM Respiratory: no wheezing, no rales, no rhonchi, clear to auscultation bilateral Cardiovascular: RRR, no significant murmur, no rub Gastrointestinal: soft, non-tender, no distention, positive bowel sounds Musculoskeletal: no edema, pulses present Dx/Plan (1) Acute and chronic respiratory failure with hypoxia Code(s): J96.21 - ACUTE AND CHRONIC RESPIRATORY FAILURE WITH HYPOXIA Status: Acute (2) Acute bronchitis with chronic obstructive pulmonary disease (COPD) Code(s): J44.0 - CHRONIC OBSTRUCTIVE PULMON DISEASE W ACUTE LOWER RESP INFCT; J20.9 - ACUTE BRONCHITIS, UNSPECIFIED Status: Acute (3) DM type 2 (diabetes mellitus, type 2) Status: Acute Qualifiers: Diabetes mellitus complication status: without complication (4) Hypertension Code(s): I10 - ESSENTIAL (PRIMARY) HYPERTENSION Status: Acute Qualifiers: Hypertension type: essential hypertension Qualified Code(s): I10 - Essential (primary) hypertension (5) CAD (coronary artery disease) Code(s): I25.10 - ATHSCL HEART DISEASE OF [place] CORONARY ARTERY W/O ANG PCTRS Status: Chronic - Plan PT/OT, nursing home social worker, respiratory therapy ? D/c next 24hrs -: Encouraged to participate with PT * .
[2017-08-12] MEDS: Atorvastatin Calcium 40 MG TAB PO SCH (20:59)
[2017-08-13] MEDS: Carvedilol 3.125 MG TAB PO SCH ×2 (09:14→16:21)
[2017-08-13] MEDS: Lisinopril/Hydrochlorothiazide 10 mg/12.5 mg Tablet PO SCH (09:14)
[2017-08-13] MEDS: Azithromycin 250 MG TAB PO SCH (09:15)
[2017-08-13] MEDS: Oseltamivir 75 MG CAP PO SCH ×2 (09:15→21:24)
[2017-08-13] MEDS: guaiFENesin ER 600 MG TAB PO SCH ×2 (09:15→21:23)
[2017-08-13] MEDS: Famotidine 20 MG TAB PO SCH ×2 (09:15→21:24)
[2017-08-13] MEDS: Enoxaparin Sodium 40 MG/0.4 ML SYRINGE SC SCH (09:16)
[2017-08-13] MEDS: Insulin Detemir 100 UNITS/ML 10 UNITS in Pre-Filled Syringe 1 EACH SC SCH (09:16)
--- NOTE | 2017-08-13 17:51 | PDOC.PN ---
- Subjective Encounter Start Date: 08/13/17 Encounter Start Time: 17:49 Subjective: Seen and examined wants to go to [place] tommorrow - Objective Resuscitation Status: Resuscitation Status DNR:Do Not Resuscitate Vital Signs & Weight: Vital Signs (12 hours) Temp Pulse Resp BP BP Pulse Ox 08/13/17 09:14 65 104/67 08/13/17 08:09 98.4 F 65 18 97/62 08/13/17 08:00 98.4 F 65 18 94 L 08/13/17 07:06 73 20 94 L Weight Weight 183 lb 3 oz I&O: 08/12/17 08/13/17 08/14/17 06:59 06:59 06:59 Intake Total 510 250 Balance 510 250 Result Diagrams: 08/08/17 05:54 08/08/17 05:54 Additional Labs: Accuchecks 08/13/17 08/13/17 08/13/17 15:59 11:36 05:33 POC Glucose 136 H 125 H 104 Phys Exam - Physical Examination Constitutional: NAD HEENT: PERRLA, moist MMs, sclera anicteric, TM's clear, 2+ tonsils Neck: no nodes, no JVD, supple, full ROM Respiratory: no wheezing, no rales, no rhonchi, clear to auscultation bilateral Cardiovascular: RRR, no significant murmur, no rub Gastrointestinal: soft, non-tender, no distention, positive bowel sounds Dx/Plan (1) Acute and chronic respiratory failure with hypoxia Code(s): J96.21 - ACUTE AND CHRONIC RESPIRATORY FAILURE WITH HYPOXIA Status: Acute (2) Acute bronchitis with chronic obstructive pulmonary disease (COPD) Code(s): J44.0 - CHRONIC OBSTRUCTIVE PULMON DISEASE W ACUTE LOWER RESP INFCT; J20.9 - ACUTE BRONCHITIS, UNSPECIFIED Status: Acute (3) DM type 2 (diabetes mellitus, type 2) Status: Acute Qualifiers: Diabetes mellitus complication status: without complication (4) Hypertension Code(s): I10 - ESSENTIAL (PRIMARY) HYPERTENSION Status: Acute Qualifiers: Hypertension type: essential hypertension Qualified Code(s): I10 - Essential (primary) hypertension (5) CAD (coronary artery disease) Code(s): I25.10 - ATHSCL HEART DISEASE OF [place] CORONARY ARTERY W/O ANG PCTRS Status: Chronic - Plan continue antibiotics, PT/OT, social service agency director, respiratory therapy D/c to [facility] tommorrow -: CaseManager consult * .
[2017-08-13] MEDS: Atorvastatin Calcium 40 MG TAB PO SCH (21:23)
[2017-08-14 08:28] VITALS: BP 104/59; TEMP 98.5
[2017-08-14] MEDS: guaiFENesin ER 600 MG TAB PO SCH (08:28)
[2017-08-14] MEDS: Carvedilol 3.125 MG TAB PO SCH (08:28)
[2017-08-14] MEDS: Lisinopril/Hydrochlorothiazide 10 mg/12.5 mg Tablet PO SCH (08:29)
[2017-08-14] MEDS: Enoxaparin Sodium 40 MG/0.4 ML SYRINGE SC SCH (08:30)
[2017-08-14] MEDS: Azithromycin 250 MG TAB PO SCH (08:30)
[2017-08-14] MEDS: Famotidine 20 MG TAB PO SCH (08:30)
[2017-08-14] MEDS ORDERED: Oseltamivir 75 MG CAP PO SCH (09:30)
[2017-08-14] MEDS: Insulin Detemir 100 UNITS/ML 10 UNITS in Pre-Filled Syringe 1 EACH SC SCH (10:09)
[2017-08-14] MEDS: Oseltamivir 75 MG CAP PO SCH (10:09)
== END 2017-08-14 13:31 | DRG 189 ==
LOC: ERS 05:24 → ERHOLD 07:30 → T4-B 16:14
PROVIDERS: ADMIT Family Medicine; ATTEND Family Medicine
PROC: 5A09357 Assistance with Respiratory Ventilation, Less than 24 Consecutive Hours, Continuous Positive Airway Pressure (ICD-10-PCS; principal; 2017-08-06)
DX: J96.21 Acute and chronic respiratory failure with hypoxia (principal); I21.4 Non-ST elevation (NSTEMI) myocardial infarction; I50.33 Acute on chronic diastolic (congestive) heart failure; J44.1 Chronic obstructive pulmonary disease with (acute) exacerbation; J44.0 Chronic obstructive pulmonary disease with (acute) lower respiratory infection; Z99.81 Dependence on supplemental oxygen; E11.9 Type 2 diabetes mellitus without complications; I25.10 Atherosclerotic heart disease of native coronary artery without angina pectoris; Z95.5 Presence of coronary angioplasty implant and graft; Z88.0 Allergy status to penicillin; Z79.4 Long term (current) use of insulin; Z87.891 Personal history of nicotine dependence; E78.5 Hyperlipidemia, unspecified; K21.9 Gastro-esophageal reflux disease without esophagitis; I11.0 Hypertensive heart disease with heart failure; J10.1 Influenza due to other identified influenza virus with other respiratory manifestations; E66.01 Morbid (severe) obesity due to excess calories; Z68.30 Body mass index [BMI] 30.0-30.9, adult; Z51.5 Encounter for palliative care; J20.9 Acute bronchitis, unspecified; Z66 Do not resuscitate
CPT/HCPCS: 36415; 36416; 71045; 80048; 80053; 82553; 82805; 83880; 84484; 85007; 85025; 85027; 87040; 87633; 87798; 93005; 93306; 94640; 94644; 94645; G8978-GP-CJ; G8979-GP-CI; G8987-GO-CJ; G8988-GO-CI; J0456; J1650; J1815; J2920; J7050; J7506; J7611; J7620; S0028

== ENCOUNTER 2018-08-22 17:15 | Emergency (ER) | payer MEDICARE, OTHER ==
[2018-08-22 18:08] LABS: #Lymphocytes 0.9 thou/uL (1.20-3.40); #Monocytes 0.5 thou/uL (0.11-0.59); #Neutrophils 7.8 thou/uL (1.40-6.50); %Basophils 0.1 % (0.0-1.0); %Eosinophils 0.1 % (0.0-10.0); %Lymphocytes 9.9 % (21.0-51.0); %Monocytes 5.4 % (0.0-10.0); %Neutrophils 84.4 % (42.0-75.0); Mean Corpuscular HGB CONC 31.7 g/dL (32.0-36.0); Mean Corpuscular Hemoglobin 25.8 pg (27.0-31.0); Mean Corpuscular Volume 81.4 fL (78.0-98.0); Mean Platelet Volume 8.8 fL (7.4-10.4); Platelet Count 242 thou/uL (130-400); RBC Distribution Width 13.4 % (11.5-14.5); Red Blood Cell (RBC) Count 4.29 mill/uL (4.20-5.40); White Blood Cell (WBC) Count 9.2 thou/uL (4.8-10.8)
[2018-08-22 18:25] LABS: ALT (SGPT) 11 U/L (8-55); AST (SGOT) 17 U/L (5-34); Albumin 4.1 g/dL (3.4-4.8); Alkaline Phosphatase 65 U/L (40-150); Anion Gap 15 mmol/L (10-20); BUN (Urea Nitrogen) 18 mg/dL (9.8-20.1); Bilirubin, Total 0.5 mg/dL (0.2-1.2); Calc. Creatinine Clearance 0 mL/min (70-130); Calcium 9.5 mg/dL (7.8-10.44); Carbon Dioxide 26 mmol/L (23-31); Chloride 98 mmol/L (98-107); Estimated GFR-MDRD 67; Globulin 2.6 g/dL (2.4-3.5); Glucose 112 mg/dL (83-110); Potassium 4.3 mmol/L (3.5-5.1); Protein, Total 6.7 g/dL (6.0-8.3); Sodium 135 mmol/L (136-145)
[2018-08-22 18:46] LABS: Bilirubin Small (Negative); Blood, Urine Negative (Negative); Clarity CLEAR (Clear); Glucose, Urine (Dipstick) Negative (Negative); Leukocyte Trace (Negative); Nitrite Negative (Negative); Protein, Urine (Dipstick) 30 mg/dL (Neg-Trace); Specific Gravity, Urine 1.027 (1.002-1.036); Urobilinogen 0.2 mg/dL (0.2-1.0); pH, Urine 5.5 (5.0-9.0)
[2018-08-22 18:47] LABS: Bacteria/HPF None Seen HPF (None Seen); Hyaline Casts/LPF 4-6 HYALINE CAST LPF (0-3 Hyaline); Pathc Cast-AUWi Flag 0.43 (0-2.49); RBC/HPF 0-3 HPF (0-3); Squamous Epithelial 0-3 HPF (0-3); WBC/HPF 0-3 HPF (0-3)
[2018-08-22 18:49] LABS: Renal Epithelial None Seen HPF (0-3); Transitional Epithelial NONE SEEN HPF (0-3)
[2018-08-22] MEDS ORDERED: Ondansetron PF 4 MG/2 ML Vial ONE (21:06)
[2018-08-22] MEDS ORDERED: Cepastat Lozenges 1 LOZ PO PRN (23:24)
== END 2018-08-23 02:31 ==
LOC: ERS 17:15
DX: E86.0 Dehydration (principal); Z86.73 Personal history of transient ischemic attack (TIA), and cerebral infarction without residual deficits; I25.10 Atherosclerotic heart disease of native coronary artery without angina pectoris; E11.9 Type 2 diabetes mellitus without complications; E78.5 Hyperlipidemia, unspecified; I10 Essential (primary) hypertension; J44.9 Chronic obstructive pulmonary disease, unspecified; F17.210 Nicotine dependence, cigarettes, uncomplicated; Z79.51 Long term (current) use of inhaled steroids; Z79.82 Long term (current) use of aspirin; Z79.899 Other long term (current) drug therapy
CPT/HCPCS: 36415; 51701; 80053; 81003; 81015; 84484; 85025; 93005; 94640; 94760; 96361; 96374; A4353; J2405; J7620

== ENCOUNTER 2018-12-30 16:18 | Outpatient (CLI) | payer MEDICARE ==
--- NOTE | 2018-12-30 16:46 | RAD ---
CHEST ONE VIEW: 12/30/18 at 5:25 p.m. HISTORY: COPD. FINDINGS: Comparison made with exam of 08/07/17. The heart size is mildly enlarged. The aorta is tortuous. The lungs are expanded without lobar consol idation, pneumothoraces, shakila pulmonary edema or pleural effusions. IMPRESSION: No acute process. POS: [facility]
== END 2018-12-30 16:19 | disposition home or self-care (01) ==
LOC: RAD-FRANK 16:18
PROVIDERS: ATTEND Nurse Practitioner Family
DX: J44.1 Chronic obstructive pulmonary disease with (acute) exacerbation (principal)
CPT/HCPCS: 71045; 71046

== ENCOUNTER 2019-01-02 12:19 | Emergency (ER) | payer MEDICARE, OTHER ==
[2019-01-02 13:00] LABS: #Lymphocytes 0.8 thou/uL (1.20-3.40); #Neutrophils 6.7 thou/uL (1.40-6.50); %Basophils 0.4 % (0.0-1.0); %Eosinophils 0.1 % (0.0-10.0); %Lymphocytes 10.3 % (21.0-51.0); %Monocytes 0.4 % (0.0-10.0); %Neutrophils 88.8 % (42.0-75.0); Hemoglobin 7.2 g/dL (12.0-16.0); Mean Corpuscular HGB CONC 29.1 g/dL (32.0-36.0); Mean Corpuscular Hemoglobin 20.3 pg (27.0-31.0); Mean Corpuscular Volume 69.8 fL (78.0-98.0); Mean Platelet Volume 10.6 fL (7.4-10.4); Platelet Count 297 thou/uL (130-400); RBC Distribution Width 17.3 % (11.5-14.5); Red Blood Cell (RBC) Count 3.56 mill/uL (4.20-5.40); White Blood Cell (WBC) Count 7.5 thou/uL (4.8-10.8)
[2019-01-02 13:17] LABS: Anisocytosis SLIGHT = 6-15 cells (100X) (0-5/hpf); Howell Jolly Bodies SLIGHT = 1-2 cells (100X) (None Seen); Hypochromia SLIGHT = 6-15 cells (100X) (0-5/hpf); Large Platelets SLIGHT; MDiff Complete? YES; Microcytosis SLIGHT = 6-15 cells (100X) (0-5/hpf); Platelet Morphology Comment Appears Adequate; Polychromasia SLIGHT = 2-3 cells (100X) (0-2/hpf); Spherocytes SLIGHT = 1-5 cells (100X) (None Seen)
[2019-01-02 13:22] LABS: ALT (SGPT) Less than 7 U/L (8-55); AST (SGOT) 9 U/L (5-34); Albumin 4.2 g/dL (3.4-4.8); Alkaline Phosphatase 72 U/L (40-150); Anion Gap 11 mmol/L (10-20); BUN (Urea Nitrogen) 8 mg/dL (9.8-20.1); Bilirubin, Total 0.3 mg/dL (0.2-1.2); Calc. Creatinine Clearance 0 mL/min (70-130); Calcium 9.5 mg/dL (7.8-10.44); Carbon Dioxide 30 mmol/L (23-31); Chloride 100 mmol/L (98-107); Estimated GFR-MDRD 77; Globulin 2.8 g/dL (2.4-3.5); Glucose 155 mg/dL (83-110); Potassium 3.7 mmol/L (3.5-5.1); Sodium 137 mmol/L (136-145)
== END 2019-01-02 19:28 | disposition home or self-care (01) ==
LOC: ERS 12:19
DX: D64.9 Anemia, unspecified (principal); J44.9 Chronic obstructive pulmonary disease, unspecified; I25.10 Atherosclerotic heart disease of native coronary artery without angina pectoris; E11.9 Type 2 diabetes mellitus without complications; E78.5 Hyperlipidemia, unspecified; I10 Essential (primary) hypertension; K21.9 Gastro-esophageal reflux disease without esophagitis; F41.9 Anxiety disorder, unspecified; F17.210 Nicotine dependence, cigarettes, uncomplicated; Z79.899 Other long term (current) drug therapy; Z79.4 Long term (current) use of insulin; Z79.82 Long term (current) use of aspirin
CPT/HCPCS: 36430; 80053; 82274; 85025; 86850; 86900; 86901; 86920; 94760; P9016; 36415

== ENCOUNTER 2019-01-10 12:57 | Emergency (ER) | payer MEDICARE, OTHER ==
--- NOTE | 2019-01-10 13:49 | RAD ---
XR Hip Rt 2-3 View History: [Fall.] Comparison: None. Findings: Moderate degenerative change. No acute fracture or malalignment. Obturator ring is intact. Moderate vascular calcifications. Impression: No acute fracture or malalignment.
--- NOTE | 2019-01-10 13:50 | RAD ---
XR Knee Rt 4 View STANDARD History: [Injury. Fall.] Comparison: None. Findings: Mild medial compartment degenerative changes. Bones are osteopenic. Small medial compartmen t osteophytes. Mild chondrocalcinosis. There is diffuse joint effusion. Mild vascular calcifications. Impression: No acute fracture or malalignment.
== END 2019-01-10 16:34 | disposition home or self-care (01) ==
LOC: ERS 12:57
DX: M25.551 Pain in right hip (principal); E11.9 Type 2 diabetes mellitus without complications; I25.10 Atherosclerotic heart disease of native coronary artery without angina pectoris; E78.5 Hyperlipidemia, unspecified; I10 Essential (primary) hypertension; J44.9 Chronic obstructive pulmonary disease, unspecified; F41.9 Anxiety disorder, unspecified; F17.210 Nicotine dependence, cigarettes, uncomplicated; Z79.51 Long term (current) use of inhaled steroids; Z79.899 Other long term (current) drug therapy; Z79.891 Long term (current) use of opiate analgesic; Z79.4 Long term (current) use of insulin; W18.09XA Striking against other object with subsequent fall, initial encounter

== ENCOUNTER 2019-02-28 09:32 | Inpatient (IN) | payer MEDICARE, MEDICAID ==
[2019-02-28 10:25] LABS: Bilirubin Negative (Negative); Blood, Urine Trace (Negative); Clarity Clear (Clear); Glucose, Urine (Dipstick) Normal (Negative); Leukocyte Negative Leu/uL (Negative); Nitrite Negative (Negative); Protein, Urine (Dipstick) 10 mg/dL (Neg-Trace); RBC/HPF 0-3 HPF (0-3); Squamous Epithelial None Seen HPF (0-3); Urobilinogen Normal mg/dL (Less than 2)
[2019-02-28 10:37] LABS: Bacteria/HPF None Seen HPF (None Seen)
[2019-02-28 11:02] LABS: Hemoglobin 7.6 g/dL (12.0-16.0); Mean Corpuscular HGB CONC 30.9 g/dL (32.0-36.0); Mean Corpuscular Hemoglobin 20.9 pg (27.0-31.0); Mean Corpuscular Volume 67.8 fL (78.0-98.0); Mean Platelet Volume 11.2 fL (7.4-10.4); Platelet Count 291 thou/uL (130-400); RBC Distribution Width 18.5 % (11.5-14.5); Red Blood Cell (RBC) Count 3.62 mill/uL (4.20-5.40); White Blood Cell (WBC) Count 11.1 thou/uL (4.8-10.8)
[2019-02-28 11:06] LABS: ALT (SGPT) Less than 7 U/L (8-55); AST (SGOT) 11 U/L (5-34); Albumin 3.7 g/dL (3.4-4.8); Alkaline Phosphatase 65 U/L (40-150); Anion Gap 10 mmol/L (10-20); BUN (Urea Nitrogen) 9 mg/dL (9.8-20.1); Bilirubin, Total 0.5 mg/dL (0.2-1.2); Calc. Creatinine Clearance 0 mL/min (70-130); Calcium 9.2 mg/dL (7.8-10.44); Carbon Dioxide 30 mmol/L (23-31); Chloride 101 mmol/L (98-107); Estimated GFR-MDRD 76; Globulin 2.9 g/dL (2.4-3.5); Glucose 157 mg/dL (83-110); Potassium 3.6 mmol/L (3.5-5.1); Protein, Total 6.6 g/dL (6.0-8.3); Sodium 137 mmol/L (136-145)
--- NOTE | 2019-02-28 11:12 | RAD ---
LEFT HIP 2 VIEWS: Date: 02/28/19 HISTORY: Fall. Left hip pain. FINDINGS/IMPRESSION: There is an intertrochanteric fracture involving the left proximal femur. POS: [facility]
[2019-02-28 11:28] LABS: #Basophils 0.1 thou/uL (0.0-0.2); #Eosinphils 0.3 thou/uL (0.0-0.7); #Lymphocytes 1.9 thou/uL (1.20-3.40); #Monocytes 0.5 thou/uL (0.11-0.59); #Neutrophils 8.4 thou/uL (1.40-6.50); %Basophils 0.7 % (0.0-1.0); %Eosinophils 2.6 % (0.0-10.0); %Lymphocytes 17.1 % (21.0-51.0); %Monocytes 4.4 % (0.0-10.0); %Neutrophils 75.2 % (42.0-75.0); Elliptocytes SLIGHT = 2-5 cells (100X) (0-1/hpf); Hypochromia MODERATE=16-30 cells (100X) (0-5/hpf); MDiff Complete? YES; Microcytosis MODERATE=15-30 cells (100X) (0-5/hpf); Platelet Morphology Comment Appears Adequate; Polychromasia SLIGHT = 2-3 cells (100X) (0-2/hpf); Target Cells SLIGHT = 2-5 cells (100X) (0-1/hpf)
[2019-02-28 12:20] LABS: INR-International Normal Ratio 1.1; PTT 32.3 SEC (22.9-36.1); Prothrombin Time 14.1 SEC (12.0-14.7)
--- NOTE | 2019-02-28 12:46 | RAD ---
PORTABLE CHEST 1 VIEW: Date: 02/28/19 Time: 1142 hours HISTORY: Fall, left hip pain and fracture. FINDINGS/IMPRESSION: Comparison made with exam of 08/06/17. The heart size is prominent. The aorta is tortuous. The lungs are expanded without lobar consolidatio n, pneumothoraces, shakila pulmonary edema, or pleural effusions. POS: [facility]
--- NOTE | 2019-02-28 12:46 | RAD ---
AP PELVIS: Date: 02/28/19 HISTORY: Fall, left hip pain. FINDINGS/IMPRESSION: There is an intertrochanteric fracture involving the left proximal femur. POS: [facility]
[2019-02-28] MEDS ORDERED: Morphine 2 MG/ML SYRINGE SLOW IVP PRN (13:03)
[2019-02-28] MEDS ORDERED: Ondansetron PF 4 MG/2 ML Vial IVP PRN (13:03)
[2019-02-28] MEDS ORDERED: Dextrose 5% in Water 1,000 ML IV PRN (13:03)
[2019-02-28] MEDS ORDERED: HumaLOG 300 UNITS/3 ML VIAL SC PRN (13:03)
[2019-02-28] MEDS ORDERED: Dextrose 50% Abboject 50 ML SYRINGE SLOW IVP PRN (13:03)
[2019-02-28] MEDS ORDERED: Albuterol Sulfate 2.5 mg/3 ml Neb NEB PRN (13:12)
[2019-02-28] MEDS ORDERED: Ipratropium Bromide 2.5 ml Neb NEB PRN (13:25)
--- NOTE | 2019-02-28 14:09 | CON ---
DATE OF CONSULTATION: 02/28/2019 CHIEF COMPLAINT: Left hip pain. HISTORY OF PRESENT ILLNESS: Ms. Marquez is an 83-year-old female, status post fall, currently lives at [facility]. The patient's pain can be from 5 to 10 out of 10. She is currently in bed. The patient has no family. PAST HISTORY: Coronary artery disease, diabetes, hyperlipidemia, high cholesterol, hypertension, COPD, reflux, anxiety. PAST SURGICAL HISTORY: Colostomy with reversal, appendectomy, . MEDICATIONS: Include; 1. Aspirin. 2. Nexium. 3. Zofran. 4. Carvedilol. 5. Lantus. 6. Folic acid. 7. Fluticasone. SOCIAL HISTORY: No alcohol or drug use. Currently, lives at [facility]. She has a chronic long history of smoking, states she currently smokes a cigarette a day. The patient has no family per her report. REVIEW OF SYSTEMS: Noncontributory. PHYSICAL EXAMINATION: VITAL SIGNS: Blood pressure 121/52, respiratory rate 16, pulse 68, temperature 97.7, and O2 saturation 97% on 2 L nasal cannula, with pain of 5 to 10 out of 10. GENERAL: Alert and oriented x3, in no acute distress, resting in bed, lying on her left side. The patient has sensation intact L4-S1 able flex and extend her toes. She has tenderness with motion of her left hip. She had no open wounds, no drainage. She has brisk cap refill. 1+ DP and PT pulses. LABORATORY DATA: The patient's laboratory values show hemoglobin and hematocrit of 7.6 and 24, white count of 11. The patient's glucose is 157. She has a creatinine of 0.73, and sodium of 137. The patient has a UA with no bacteria, crystals noted. The patient's x-rays of her left hip show a left stable intertrochanteric hip fracture. IMPRESSION: 1. Left intertrochanteric hip fracture. 2. Multiple medical problems as above. ASSESSMENT AND PLAN: The patient will be admitted to Trauma Service. The patient will be made n.p.o. She will need a type and screen for likely transfusion, given the patient's anemia. She will be preoperatively cleared and taken to the OR for left intertrochanteric hip short nailing. I discussed with the patient the risks and benefits of surgery, pain, scar, bleeding, infection, damage to vital structures, decreased range of motion or strength, nonunion, malunion, fracture above or below, need for further surgeries, loss of life or limb. I discussed with the patient, she would be able to weightbear on as tolerated. I discussed patients mortality with her, it is about 40% in 6 months. She understood all these risks and benefits. The patient elects to proceed. We will proceed with surgery once preoperatively cleared. Job ID: [id number] [facility]
[2019-02-28] MEDS ORDERED: Senokot 8.6 MG TAB PO PRN (14:15)
[2019-02-28] MEDS ORDERED: Sodium Chloride 0.9% 1,000 ML IV SCH (14:45)
[2019-02-28] MEDS: Acetaminophen 1,000 MG in Premix Bag 1 BAG IVPB SCH ×2 (15:08→21:56)
[2019-02-28] MEDS: Ketorolac Tromethamine 30 MG/ML VIAL IVP SCH ×2 (15:09→21:56)
[2019-02-28] MEDS: Morphine 4 MG/ML VIAL SLOW IVP PRN ×2 (17:38→20:24)
[2019-02-28] MEDS: Carvedilol 3.125 MG TAB PO SCH (17:38)
[2019-02-28] MEDS: Famotidine/PF 20 mg/2ml Vial SLOW IVP SCH (20:24)
--- NOTE | 2019-03-01 01:01 | PRG ---
DATE OF SERVICE: 03/01/2019 SUBJECTIVE: The patient was admitted today, status post ground level fall, in which she sustained a left intertrochanteric hip fracture. The patient was noted to be anemic upon her arrival, so she would not undergo her surgical procedure today. She was transfused 1 unit of packed red blood cells. We will repeat the lab work in the morning. She will be n.p.o. after midnight in plans of having her surgery. Otherwise, there are no reported issues. OBJECTIVE: VITAL SIGNS: Stable. She is afebrile and she is making good urine. ASSESSMENT AND PLAN: 1. Status post ground level fall. 2. Left intertrochanteric hip fracture. 3. Anemia. Plan will be to continue supportive care. N.p.o. after midnight. Recheck labs in the morning. We will also type and cross her for 1 unit of packed red blood cells in preparation for her surgery. Postoperatively, we will begin to work with Physical and Occupational Therapy and p.o. pain control and diet. Job ID: [id number]
[2019-03-01] MEDS: Morphine 4 MG/ML VIAL SLOW IVP PRN ×2 (01:19→04:06)
[2019-03-01] MEDS: Acetaminophen 1,000 MG in Premix Bag 1 BAG IVPB SCH ×2 (05:09→13:23)
[2019-03-01] MEDS: Ketorolac Tromethamine 30 MG/ML VIAL IVP SCH ×2 (05:09→13:19)
[2019-03-01 07:12] LABS: INR-International Normal Ratio 1.2; PTT 35.6 SEC (22.9-36.1)
[2019-03-01 07:25] LABS: Anion Gap 11 mmol/L (10-20); BUN (Urea Nitrogen) 13 mg/dL (9.8-20.1); Calc. Creatinine Clearance 75 mL/min (70-130); Calcium 8.8 mg/dL (7.8-10.44); Carbon Dioxide 28 mmol/L (23-31); Chloride 101 mmol/L (98-107); Estimated GFR-MDRD 82; Glucose 103 mg/dL (83-110); Potassium 3.6 mmol/L (3.5-5.1); Sodium 136 mmol/L (136-145)
[2019-03-01] MEDS ORDERED: Famotidine/PF 20 mg/2ml Vial ONE (07:35)
[2019-03-01 07:48] LABS: #Eosinphils 0.2 thou/uL (0.0-0.7); #Lymphocytes 1.7 thou/uL (1.20-3.40); #Monocytes 0.7 thou/uL (0.11-0.59); #Neutrophils 8.9 thou/uL (1.40-6.50); %Basophils 0.4 % (0.0-1.0); %Eosinophils 2.1 % (0.0-10.0); %Lymphocytes 14.6 % (21.0-51.0); %Monocytes 5.7 % (0.0-10.0); %Neutrophils 77.1 % (42.0-75.0); Hemoglobin 8.3 g/dL (12.0-16.0); Mean Corpuscular HGB CONC 30.1 g/dL (32.0-36.0); Mean Corpuscular Volume 69.7 fL (78.0-98.0); Mean Platelet Volume 11.8 fL (7.4-10.4); Platelet Count 232 thou/uL (130-400); RBC Distribution Width 20.3 % (11.5-14.5); Red Blood Cell (RBC) Count 3.95 mill/uL (4.20-5.40); White Blood Cell (WBC) Count 11.6 thou/uL (4.8-10.8)
[2019-03-01] MEDS ORDERED: Tranexamic Acid 1,000 MG/10 ML VIAL ONE (07:53)
[2019-03-01] MEDS ORDERED: Clindamycin/D5W 900 mg/50 ml Premix Bag ONE (07:53)
[2019-03-01] MEDS ORDERED: Sodium Chloride 0.9% 100 ML ONE (07:53)
[2019-03-01] MEDS ORDERED: Fentanyl 100 MCG/2 ML VIAL ONE (07:57)
[2019-03-01] MEDS ORDERED: PROPOFOL 20 ML ONE (08:04)
[2019-03-01] MEDS: Famotidine/PF 20 mg/2ml Vial SLOW IVP SCH ×2 (09:02→20:00)
[2019-03-01] MEDS: Carvedilol 3.125 MG TAB PO SCH ×2 (09:02→16:16)
[2019-03-01] MEDS: Lisinopril/Hydrochlorothiazide 10 mg/12.5 mg Tablet PO SCH (09:03)
[2019-03-01] MEDS: Polyethylene Glycol 3350 17 GM Packet PO SCH (09:03)
[2019-03-01] MEDS ORDERED: Ondansetron HCl/PF 4 MG/2 ML Vial IVP PRN (09:47)
--- NOTE | 2019-03-01 09:51 | RAD ---
EXAM: 4 fluoroscopic spot images of the left hip DATE: 03/01/2019 12:00 AM INDICATION: Left hip trochanteric nail COMPARISON: None. FINDING: Since the comparison examination there is been closed reduction and placement of a cephalom edullary device transfixing the patient's left intertrochanteric hip fracture. Total fluoroscopic time was 71.4 seconds. Total exposure was 13.64 mCi. IMPRESSION:Reduction and internal fixation of the left hip intertrochanteric fracture.
[2019-03-01 10:11] LABS: Magnesium 2.1 mg/dL (1.6-2.6); Phosphorus 3.4 mg/dL (2.3-4.7)
[2019-03-01] MEDS ORDERED: PROPOFOL 200 MG/20 ML VIAL ONE (12:52)
[2019-03-01] MEDS ORDERED: Ondansetron PF 4 MG/2 ML Vial ONE (12:52)
[2019-03-01] MEDS ORDERED: PHENYLEPHRINE-NS 100 MCG/ML 10 ML SYRINGE ONE (12:52)
[2019-03-01] MEDS ORDERED: Ketorolac Tromethamine 30 MG/ML VIAL ONE (12:52)
[2019-03-01] MEDS ORDERED: ePHEDrine 50 MG/ML VIAL ONE (12:52)
[2019-03-01] MEDS: Clindamycin/D5W 900 MG in Premix Bag 1 BAG IVPB SCH ×2 (14:29→22:17)
[2019-03-01] MEDS: Ibuprofen 600 MG TAB PO SCH ×2 (14:32→19:59)
--- NOTE | 2019-03-01 14:40 | PRG ---
DATE OF SERVICE: 03/01/2019 SUBJECTIVE: This is an 83-year-old female, who is coming to emergency room to evaluation of left hip pain after a fall in her custodial. Upon arrival to the ED, the patient was alert and awake, complaining of pain of pain from L hip. Vitals were stable. The patient was admitted to our surgical floor to prepare for the next day surgical repair. Her hemoglobin upon arrival was 7.6, so Dr. Burns wanted her to have a 1 unit of blood before the surgery. This morning, her hemoglobin is 8.6. She went to the OR. After she went back from OR, her vitals were stable. She does not raise any complaint. OBJECTIVE: GENERAL: Patient is alert and awake. VITAL SIGNS: Temperature 98, pulse 82, respiratory rate 16, O2 sat 95 on 1 L, and blood pressure 149/72. LUNGS: Clear bilaterally. HEART: Regular rate and rhythm. ABDOMEN: Soft and nondistended. Bowel sounds are normal. EXTREMITIES: Skin is pink and warm. Neurovascularly intact. Limited range of motion of the left hip postop. LABORATORY DATA: White blood count is 11.6, hemoglobin 8.3. Sodium 136, potassium 3.6, phosphorus 3.4, magnesium 2.1 and creatinine is 0.68, blood glucose is 118. Her urine with negative nitrite, white blood cell count 4 to 6, red blood counts are normal. Urine leukocyte esterase is negative. ASSESSMENT: 1. Status post ground-level fall. 2. Left hip fracture, postop left hip fracture ORIF. 3. History of coronary artery disease, diabetes type 2, hypertension, chronic obstructive pulmonary disease, and age-related physical debility. PLAN: 1. Continue supportive treatment. 2. Continue pain control. 3. Continue prophylaxis, pulmonary toilet, gastritis, DVT. 4. Start working with PT and OT to gain her muscle strength for her daily life functionality. Placement plan will be acute inpatient rehabilitation. Job ID: [id number] [facility]
[2019-03-01] MEDS: Ferrous Sulfate 325 MG TAB PO SCH (16:16)
--- NOTE | 2019-03-01 16:55 | OP ---
DATE OF PROCEDURE: 03/01/2019 PREOPERATIVE DIAGNOSIS: Left intertrochanteric hip fracture. POSTOPERATIVE DIAGNOSIS: Left intertrochanteric hip fracture. PROCEDURE PERFORMED: Left intramedullary nailing short nail TFNA of intertrochanteric fracture. MANAGER MEDICAL DEVICE: Chaka Rowan PA-C ANESTHESIA: The patient received a general endotracheal intubation. ESTIMATED BLOOD LOSS: 100 mL. TOURNIQUET TIME: None. IMPLANTS: Synthes 11 x 170 mm titanium cannulated TFNA with a distal 5 mm nonlocking screw and a 90 mm TFNA compression screw. ANTIBIOTICS: Clindamycin 900, TXA 1 g. COMPLICATIONS: None. HISTORY OF PRESENT ILLNESS: Ms. Marquez is an 83-year-old female, who was fell in the bathroom sustaining an intertrochanteric fracture. I discussed with the patient, the risks and benefits of surgery, pain, scar, bleeding, infection, damage to vital structures, decreased range of motion and strength, nonunion, malunion, fracture above or below the stem, failure of implants, loss of life or limb. I discussed the mortality associated with hip fracture. She understood the risks and benefits and elected to proceed. She received blood per Trauma and received another unit intraoperatively. DESCRIPTION OF PROCEDURE: After time-out was performed designating the patient' s left lower extremity as the operative site, based on site, consents, and marking , we reduced this fracture under fluoroscopy, placed a guide pin into the greater trochanter down the length of the femur, placed opening reamer, reamed up, placed an 11 mm nail. Under fluoroscopic guidance, our tip apex to this was slightly superior, but otherwise right in the middle. On AP and lateral radiographs, we over-reamed at 95, placed a 90 mm screw, compressed and let the traction off to compress completely, put our locking screw in proximally, locked the gate down completely to one half turned off, and distally, put a distal locking screw in. I noted that our compression screw was slightly rotated sowe just came back and unlocked and spun it and locked it right down. We washed and closed with 0, 2-0, and nate. The patient will be weightbearing as tolerated and followed by Trauma likely and will be sent back to the half-way after medically stable. Job ID: [id number] [facility]
[2019-03-01] MEDS: Acetaminophen 500 MG TAB PO SCH (17:59)
[2019-03-01] MEDS: Ascorbic Acid 500 mg Chewable Tablet PO SCH (20:00)
[2019-03-02] MEDS: Acetaminophen 500 MG TAB PO SCH ×4 (00:35→17:51)
[2019-03-02] MEDS: Ibuprofen 600 MG TAB PO SCH ×4 (00:35→14:01)
[2019-03-02] MEDS ORDERED: traMADol HCl 50 MG TAB PO PRN (01:09)
--- NOTE | 2019-03-02 01:45 | PRG ---
DATE OF SERVICE: 03/02/2019 SUBJECTIVE: The patient is currently on the surgical floor. She is status post ground level fall, when she sustained a left intertrochanteric hip fracture. This morning, she underwent left intramedullary nailing of her fracture. She reportedly tolerated this well. Her pain is currently controlled with p.o. pain medications. There were no reported complaints or issues. OBJECTIVE: VITAL SIGNS: Are stable. The patient is afebrile. GENERAL: The patient appears in no distress. She is resting comfortably. She is asleep at this time, and I did not awaken her for an exam. ASSESSMENT: 1. Status post ground level fall. 2. Status post intramedullary nailing of left intertrochanteric hip fracture. PLAN: Plan will be to continue supportive care tomorrow, being working with physical and occupational therapy. Recheck her labs in the morning and discuss placement. Job ID: [id number]
[2019-03-02 06:20] LABS: #Eosinphils 0.3 thou/uL (0.0-0.7); #Lymphocytes 1.8 thou/uL (1.20-3.40); #Monocytes 0.6 thou/uL (0.11-0.59); %Basophils 0.3 % (0.0-1.0); %Eosinophils 2.4 % (0.0-10.0); %Lymphocytes 15.3 % (21.0-51.0); %Monocytes 4.8 % (0.0-10.0); %Neutrophils 77.2 % (42.0-75.0); Mean Corpuscular HGB CONC 30.5 g/dL (32.0-36.0); Mean Corpuscular Hemoglobin 22.8 pg (27.0-31.0); Mean Corpuscular Volume 74.8 fL (78.0-98.0); Mean Platelet Volume 11.5 fL (7.4-10.4); Platelet Count 211 thou/uL (130-400); RBC Distribution Width 20.3 % (11.5-14.5); Red Blood Cell (RBC) Count 3.94 mill/uL (4.20-5.40); White Blood Cell (WBC) Count 11.6 thou/uL (4.8-10.8)
[2019-03-02 06:47] LABS: Anion Gap 10 mmol/L (10-20); BUN (Urea Nitrogen) 11 mg/dL (9.8-20.1); Calc. Creatinine Clearance 77 mL/min (70-130); Carbon Dioxide 28 mmol/L (23-31); Chloride 102 mmol/L (98-107); Estimated GFR-MDRD 85; Glucose 96 mg/dL (83-110); Magnesium 1.8 mg/dL (1.6-2.6); Phosphorus 2.7 mg/dL (2.3-4.7); Potassium 3.4 mmol/L (3.5-5.1); Sodium 137 mmol/L (136-145)
[2019-03-02] MEDS ORDERED: PHOS-NAK 1 PKT PACK PO SCH (07:45)
--- NOTE | 2019-03-02 07:47 | HP ---
This is Quang Mora PA-C dictating a report for Moses Mendoza DO. HISTORY OF PRESENT ILLNESS: The patient presented for evaluation of fall. The patient was living in a alf, where she was using toilet this morning and falling off the toilet result in left hip pain. The patient came in using EMS. The patient's vital stable en route. Upon arrival, the patient's GCS is 15. Complained of severe pain of left hip. No other injury noted. REVIEW OF SYSTEM: Noncontributory except per HPI. PAST MEDICAL HISTORY: Report from EMS, the patient have history of diabetes, hyperlipidemia, COPD, has difficulty walking and is using walker in a alf PAST SURGICAL HISTORY: Colostomy, appendectomy, and . PHYSICAL EXAMINATION: GENERAL: The patient is an old lady in medium acute distress due to pain from upper left hip. VITAL SIGNS: pulse 56, respiratory rate 15, O2 saturations 97 on 2 L oxygen. HEENT: Atraumatic. LUNGS: Clear bilaterally. HEART: Regular rate and rhythm. ABDOMEN: Soft and nondistended. No rebound. EXTREMITIES: Upper extremity, normal range of motion. Lower extremity, limited range of motion from the right hip due to pain. SKIN: Warm, dry, and normal in color. RADIOLOGY: Left intertrochanteric fracture. DIAGNOSES: 1. Status post fall. 2. Left intertrochanteric hip fracture. 3. History of diabetes. 4. Chronic obstructive pulmonary disease. 5. Dementia. PLAN Pain control Manage diabetes and HTN NPO midnight to prepare for surgery in the next morning Job ID: [id number] [facility]
[2019-03-02] MEDS: Ferrous Sulfate 325 MG TAB PO SCH ×2 (08:07→17:50)
[2019-03-02] MEDS: Potassium Chloride 20 MEQ TAB PO SCH (08:07)
[2019-03-02] MEDS: Carvedilol 3.125 MG TAB PO SCH ×2 (08:07→17:50)
[2019-03-02] MEDS ORDERED: Aspirin Chewable 81 MG TAB PO SCH (09:00)
[2019-03-02] MEDS: Aspirin Chewable 81 MG TAB PO SCH ×2 (09:22→20:35)
[2019-03-02] MEDS: Ascorbic Acid 500 mg Chewable Tablet PO SCH ×2 (09:22→20:35)
[2019-03-02] MEDS: Polyethylene Glycol 3350 17 GM Packet PO SCH (09:22)
[2019-03-02] MEDS: Lisinopril/Hydrochlorothiazide 10 mg/12.5 mg Tablet PO SCH (09:22)
[2019-03-02] MEDS: Folic Acid 1 MG TAB PO SCH (09:22)
[2019-03-02] MEDS: Senokot S 8.6-50 MG TAB PO SCH ×2 (09:23→20:35)
[2019-03-02] MEDS: Famotidine 20 MG TAB PO SCH ×2 (09:23→20:35)
[2019-03-02] MEDS: Magnesium Chloride 64 MG TAB PO SCH ×2 (10:00→20:42)
--- NOTE | 2019-03-02 16:02 | DIS ---
DATE OF ADMISSION: 02/28/2019 DATE OF DISCHARGE: 03/03/2019 ADMISSION DIAGNOSES: 1. Status post fall. 2. Left hip fracture. 3. Postoperative day 1 of left intramedullary nail, TFNA of left intertrochanteric fracture. DISCHARGE DIAGNOSES: 1. Status post fall. 2. Left hip fracture. 3. Left hip open reduction and internal fixation, postoperative day 1. 4. History of diabetes and hypertension. CONSULTING PHYSICIAN: Kennedy Burns MD PROCEDURE PERFORMED: Left intramedullary nailing, short nail, TFNA of left intertrochanteric fracture. HOSPITAL COURSE: This is an 83-year-old female, who came into the emergency room for evaluation of left hip pain after falling in her fdc. She was diagnosed with the left hip fracture. She underwent ORIF of left hip yesterday. Postoperatively, she is doing good. She develops no fever or shortness of breath. Her kidney function is good. She makes good urine. She is able to tolerate regular diet. She is able to limitedly move her left hip with limited pain. She will be going back to her fdc today. DISCHARGE DISPOSITION: detention. DISCHARGE CONDITION: Satisfactory. PHYSICAL EXAMINATION: GENERAL: The patient is alert and awake. VITAL SIGNS: This morning, temperature 97.8, heart rate 82, respiratory rate 18 , O2 saturation 93% on room air, blood pressure 132/70. LUNGS: Clear bilaterally. CARDIAC: Regular rate and rhythm. ABDOMEN: Soft and nondistended. Bowel sounds are normal. EXTREMITIES: No focal neuro deficits. Limited range of motion from the left hip due to pain. DISCHARGE PLAN: The patient is continued to monitor and supportive care in her fdc. Continue physical therapy and occupational therapy. Continue taking medications as directed. The patient is to follow up with Dr. Kennedy Burns in 10 days. The patient is to follow up with Dr. Mendoza as needed. Job ID: [id number] [facility]
--- NOTE | 2019-03-02 18:14 | PRG ---
DATE OF SERVICE: 03/02/2019 SUBJECTIVE: This is an 83-year-old female who is coming through emergency room for evaluation of left hip pain after a fall in her jail. Upon arrival to the ER, the patient was alert and awake, complaining of pain from the left hip. Vital signs were stable. The patient was admitted to the surgical floor for the next day surgical repair. No overnight events. The patient able to tolerate the regular diet. The patient is able to work with PT/OT. OBJECTIVE: GENERAL: The patient is alert and awake and oriented x3. VITAL SIGNS: This morning; temperature 98, pulse 78, respiratory rate 14, O2 saturation 97 on room air, blood pressure 147/62. LUNGS: Clear bilaterally. HEART: Regular rate and rhythm. ABDOMEN: Soft and nondistended. Bowel sounds normal. EXTREMITIES: Neurovascularly intact x4. NEUROLOGIC: No focal neurologic deficits. LABORATORY DATA: White blood count 11.6, hemoglobin 9.0. Sodium 137 and potassium 3.4. Phosphorus 2.7. Magnesium 1.8. ASSESSMENT: 1. Status post ground-level fall. 2. Postoperative left hip fracture open reduction and internal fixation. 3. History of coronary artery disease. 4. Diabetes, type 2. 5. Hypertension. 6. Chronic obstructive pulmonary disease. 7. Age-related physical disability. PLAN: Continue supportive care. Continue pain control. Continue prophylaxis of pulmonary toilet, gastritis, and DVT. Continue working with PT/OT. Replace abnormal electrolyte p.o. The patient would be able to be discharged to her jail tomorrow. Job ID: [id number] [facility]
--- NOTE | 2019-03-03 00:46 | PRG ---
DATE OF SERVICE: 03/03/2019 SUBJECTIVE: The patient remains on the surgical floor. She is status post ground level fall when she sustained a left hip fracture. She has undergone operative procedure for repair of this and she tolerated that well. She has started working with Physical and Occupational Therapy. Regarding her placement, she requires 3 midnights, so tomorrow I believe will be date that she is able to be transferred back to her nursing facility. Otherwise, the patient is tolerating a diet. Her pain is controlled and her bowel function has returned. OBJECTIVE: VITAL SIGNS: Stable. The patient is afebrile. GENERAL: The patient is resting comfortably in bed. She is asleep. I did not awaken her for my exam. ASSESSMENT: 1. Status post ground level fall. 2. Status post open reduction and internal fixation of intertrochanteric hip fracture. PLAN: Plan will be to continue supportive care and likely discharge tomorrow. Job ID: [id number]
[2019-03-03] MEDS: Acetaminophen 500 MG TAB PO SCH ×3 (00:59→11:57)
[2019-03-03] MEDS: Ibuprofen 600 MG TAB PO SCH ×4 (01:00→13:19)
[2019-03-03] MEDS: Potassium Chloride 20 MEQ TAB PO SCH (08:38)
[2019-03-03] MEDS: Carvedilol 3.125 MG TAB PO SCH (08:38)
[2019-03-03] MEDS: Ferrous Sulfate 325 MG TAB PO SCH (08:38)
[2019-03-03] MEDS: Polyethylene Glycol 3350 17 GM Packet PO SCH (09:38)
[2019-03-03] MEDS: Senokot S 8.6-50 MG TAB PO SCH (09:39)
[2019-03-03] MEDS: Ascorbic Acid 500 mg Chewable Tablet PO SCH (09:39)
[2019-03-03] MEDS: Famotidine 20 MG TAB PO SCH (09:39)
[2019-03-03] MEDS: Folic Acid 1 MG TAB PO SCH (09:39)
[2019-03-03] MEDS: Aspirin Chewable 81 MG TAB PO SCH (09:40)
[2019-03-03] MEDS: Lisinopril/Hydrochlorothiazide 10 mg/12.5 mg Tablet PO SCH (09:40)
[2019-03-03] MEDS: Magnesium Chloride 64 MG TAB PO SCH (09:41)
[2019-03-03 12:13] VITALS: BP 129/57; TEMP 98.2
== END 2019-03-03 13:28 | DRG 482 ==
LOC: ERS 09:32 → SURG A 13:33
PROVIDERS: ADMIT Surgery; ATTEND Surgery
PROC: 30233N1 Transfusion of Nonautologous Red Blood Cells into Peripheral Vein, Percutaneous Approach (ICD-10-PCS; 2019-02-28)
PROC: 0QS736Z Reposition Left Upper Femur with Intramedullary Internal Fixation Device, Percutaneous Approach (ICD-10-PCS; principal; 2019-03-01)
DX: S72.142A Displaced intertrochanteric fracture of left femur, initial encounter for closed fracture (principal); E11.9 Type 2 diabetes mellitus without complications; E78.5 Hyperlipidemia, unspecified; J44.9 Chronic obstructive pulmonary disease, unspecified; F03.90 Unspecified dementia, unspecified severity, without behavioral disturbance, psychotic disturbance, mood disturbance, and anxiety; I10 Essential (primary) hypertension; I25.10 Atherosclerotic heart disease of native coronary artery without angina pectoris; E78.00 Pure hypercholesterolemia, unspecified; K21.9 Gastro-esophageal reflux disease without esophagitis; F41.9 Anxiety disorder, unspecified; F17.210 Nicotine dependence, cigarettes, uncomplicated; D64.9 Anemia, unspecified; W18.11XA Fall from or off toilet without subsequent striking against object, initial encounter; Y92.121 Bathroom in nursing home as the place of occurrence of the external cause; Z90.49 Acquired absence of other specified parts of digestive tract; Z93.3 Colostomy status
CPT/HCPCS: 36415; 36416; 36430; 51701; 71045; 72170; 76000; 80048; 80053; 81003; 81015; 83735; 84100; 85025; 85610; 85730; 86850; 86900; 86901; 93005; 94640; A4353; C1713; G0390; J0131; J1885; J2270; J2405; J2704; J3010; J3490; J7620; P9016; S0028

== ENCOUNTER 2019-04-15 01:36 | Emergency (ER) | payer MEDICARE, MEDICAID ==
[2019-04-15 02:07] LABS: #Basophils 0.1 thou/uL (0.0-0.2); #Eosinphils 0.2 thou/uL (0.0-0.7); #Lymphocytes 2.9 thou/uL (1.20-3.40); #Monocytes 0.8 thou/uL (0.11-0.59); #Neutrophils 11.3 thou/uL (1.40-6.50); %Basophils 0.5 % (0.0-1.0); %Lymphocytes 18.7 % (21.0-51.0); %Monocytes 5.4 % (0.0-10.0); %Neutrophils 74.4 % (42.0-75.0); Hemoglobin 12.3 g/dL (12.0-16.0); Mean Corpuscular HGB CONC 32.4 g/dL (32.0-36.0); Mean Corpuscular Volume 77.3 fL (78.0-98.0); Mean Platelet Volume 9.6 fL (7.4-10.4); Platelet Count 397 thou/uL (130-400); RBC Distribution Width 20.7 % (11.5-14.5); Red Blood Cell (RBC) Count 4.91 mill/uL (4.20-5.40); White Blood Cell (WBC) Count 15.2 thou/uL (4.8-10.8)
[2019-04-15 02:27] LABS: ALT (SGPT) 13 U/L (8-55); AST (SGOT) 11 U/L (5-34); Alkaline Phosphatase 86 U/L (40-150); Anion Gap 13 mmol/L (10-20); BUN (Urea Nitrogen) 7 mg/dL (9.8-20.1); Bilirubin, Total 0.5 mg/dL (0.2-1.2); Calc. Creatinine Clearance 0 mL/min (70-130); Calcium 10.2 mg/dL (7.8-10.44); Carbon Dioxide 28 mmol/L (23-31); Chloride 95 mmol/L (98-107); Estimated GFR-MDRD 72; Globulin 3.3 g/dL (2.4-3.5); Glucose 145 mg/dL (83-110); Potassium 3.4 mmol/L (3.5-5.1); Protein, Total 7.3 g/dL (6.0-8.3); Sodium 133 mmol/L (136-145)
[2019-04-15 03:02] LABS: Bilirubin Negative (Negative); Blood, Urine Negative (Negative); Glucose, Urine (Dipstick) Negative (Negative); Leukocyte Large (Negative); Nitrite Positive (Negative); Protein, Urine (Dipstick) Trace mg/dL (Neg-Trace); Urobilinogen 0.2 mg/dL (Less than 2)
[2019-04-15 03:04] LABS: Bacteria/HPF 4+ HPF (None Seen); Clarity Cloudy (Clear); Other Microscopic Description Less than 2 mL rec'd; RBC/HPF None Seen HPF (0-3); Renal Epithelial 0-3 HPF (None Seen); Squamous Epithelial 0-3 HPF (0-3)
[2019-04-15] MEDS ORDERED: cefTRIAXone\\ROCEPHIN 1 GM VIAL ONE (03:16)
--- NOTE | 2019-04-15 08:04 | CT ---
PRELIMINARY REPORT/[facility]/EMERGENCY AFTER HOURS PROCEDURE: EXAM: CT Head Without Contrast EXAM DATE/TIME: 04/15/2019 2:10 AM CLINICAL HISTORY: 84 years old, female; Altered mental status/memory loss; Confusion or disorientation; Patient HX: 84 y/o F presents to ED via EMS transport from [place] for AMS and hallucinations TECHNIQUE: Imaging protocol: Computed tomography of the head without contrast. COMPARISON: No relevant prior studies available. FINDINGS: Brain: No midline shift. No acute hemorrhage detected. Focal areas of encephalomalacia are located in the left occipital and right cerebellar hemisphere, compatible with remote injuries. There findings compatible with the arachnoid cyst right frontal. Patchy whitte matter hypodensities are nonspecific but may be seen in small vessel chronic ischemic changes. Ventricles: No ventriculomegaly. Bones/joints: No acute fracture. Sinuses: Visualized sinuses are unremarkable. No fluid levels. Mastoid air cells: Visualized mastoid air cells are well aerated. No mastoid effusion. Soft tissues: Unremarkable. IMPRESSION: No acute intracranial abnormality. Thank you for allowing us to participate in the care of your patient. Dictated and Authenticated by: Rajani Rubalcava MD 04/15/2019 2:22 AM Central Time ([place] & [place]) FINAL REPORT BRAIN CT WITHOUT IV CONTRAST EMERGENT AFTER HOURS EXAM: TIME: 2:12 a.m. DATE: 04/15/2019 FINDINGS: Scattered white matter hypodensities. Evidence for chronic white matter ischemic changes. Focal are as of encephalomalacia. No mass or bleed or other acute process. This report is in agreement with the preliminary report by Gillian. POS: [facility]
== END 2019-04-15 04:20 | disposition home or self-care (01) ==
LOC: ERS 01:36
DX: N39.0 Urinary tract infection, site not specified (principal); I25.10 Atherosclerotic heart disease of native coronary artery without angina pectoris; E11.9 Type 2 diabetes mellitus without complications; E78.5 Hyperlipidemia, unspecified; E78.00 Pure hypercholesterolemia, unspecified; I10 Essential (primary) hypertension; J44.9 Chronic obstructive pulmonary disease, unspecified; K21.9 Gastro-esophageal reflux disease without esophagitis; F41.9 Anxiety disorder, unspecified; F17.210 Nicotine dependence, cigarettes, uncomplicated; Z79.899 Other long term (current) drug therapy; Z79.4 Long term (current) use of insulin
CPT/HCPCS: 36415; 51701; 70450; 80053; 81003; 81015; 83605; 85025; 87077; 87086; 87186; 96361; 96365; A4353; J0696